=== PATIENT | female | born 1955 | race Caucasian/White ===

== ENCOUNTER → 2016-12-25 | Outpatient (CLI) | payer MEDICARE ==
[~2016-12-25] MED LIST: AC500T; AC500T PO; AMT10T; ASCO500C14; ASP81TEC PO; ASPI-84 PO; ATEN25TA PO; BUTA-234 PO; CA C1TAB26 PO; CLCX200C; CLD600T; CLON1TAB3 PO; CLON1TAB36; CLON2TAB3 PO; CYCL10TA9 PO; DIAZ2TAB2 PO; DOCU-161 PO; FLX20C; HCT25T; HYDR-229 PO; HYDR1TAB66 PO; JANUVIA; LEVO125T PO; LEVO137T24 PO; LEVO500T69 PO; LVT.112T; LVT.112T PO; LVT.1T; METH4TAB PO; MGX400T; MTF500TCR PO; MTH750T; MULT-608; MULT-608 PO; NF-ESOM40C PO; NITR100C3 PO; OMEP20CA6; PROP1TAB77; PRX20T PO; SERT100T; SITA1TAB6; SITA1TAB6 PO; SITA50TA PO; SRTR100T; SRTR100T PO; TIZA2CAP; TOPI100T; TPR100T PO; TRAMADOL HCL; TRIA16.5 NS; TRIA1TAB2 PO; TRM50T PO; klonopin
[2016-12-25 13:36] LABS: BASOPHILS % (AUTO) 1 % (0-10); EOSINOPHILS % (AUTO) 0 % (0-10); LYMPHOCYTES # (AUTO) 1.2 X 10^3 (1.0-4.0); LYMPHOCYTES % (AUTO) 16 % (12-44); MEAN CORPUSCULAR HEMOGLOBIN 32 PG (25-34); MEAN CORPUSCULAR HGB CONC 35 G/DL (32-36); MEAN CORPUSCULAR VOLUME 93 FL (80-99); MEAN PLATELET VOLUME 9.6 FL (7.4-10.4); MONOCYTES # (AUTO) 0.2 X 10^3 (0.0-1.0); MONOCYTES % (AUTO) 2 % (0-12); NEUTROPHILS # (AUTO) 6.2 X 10^3 (1.8-7.8); NEUTROPHILS % (AUTO) 81 % (42-75); PLATELET COUNT 287 10^3/uL (130-400); RED BLOOD COUNT 4.82 10^6/uL (4.35-5.85); RED CELL DISTRIBUTION WIDTH 12.5 % (10.0-14.5); WHITE BLOOD COUNT 7.7 10^3/uL (4.3-11.0)
== END ==
LOC: CARD 13:04
PROVIDERS: ATTEND Family Medicine
DX: Z01.818 Encounter for other preprocedural examination (principal); Z01.812 Encounter for preprocedural laboratory examination; M20.40 Other hammer toe(s) (acquired), unspecified foot; E03.9 Hypothyroidism, unspecified; F41.9 Anxiety disorder, unspecified
CPT/HCPCS: 36415; 85025; 93005

== ENCOUNTER 2016-12-28 05:20 | Emergency (ER) | payer MEDICARE ==
[~2016-12-28] VITALS: Ht 162.6 cm; Wt 79.5 kg
--- NOTE | 2016-12-28 06:00 | ED Fall/Injury ---
General Chief Complaint: Lower Extremity Stated Complaint: LEFT KNEE INJURY Nursing Triage Note: PT REPORTS TRIPPING OVER BABY GATE THIS AM INJURING HER L KNEE. MODERATE SWELLING NOTED TO AFFECTED KNEE. PT DENIES ANY OTHER INJURY. Source: patient Exam Limitations: no limitations History of Present Illness Time seen by provider: 05:27 Initial Comments This pleasant 61-year-old woman presents to the emergency room with a left knee injury after tripping over a baby gait in the home. She landed on the baby gate injuring her left lateral knee to which there is now a large apparent hematoma. She denies any other injuries. She is ambulatory with a limp. The incident happened somewhere around 04:00. She denies any blood thinner use other than baby aspirin which she just started taking a couple of days ago. Allergies and Home Medications Allergies Coded Allergies: gabapentin (Verified Allergy, Intermediate, 04/01/12) PYSCOTIC Sulfa (Sulfonamide Antibiotics) (Unverified Allergy, Mild, 09/02/07) hydrocodone (Unverified Allergy, Mild, 02/23/09) oxycodone (Unverified Allergy, Mild, 02/23/09) prednisone (Unverified Allergy, Mild, 02/23/09) trazodone (Unverified Allergy, Mild, 02/23/09) nefazodone (Verified Allergy, Unknown, 02/24/09) Home Medications Acetaminophen 500 Mg Tablet, 500-1,000 MG PO Q4H PRN, (Reported) as needed for mild pain Levofloxacin 500 Mg Tab, 1 EACH PO DAILY, #15 FOR INFECTION Prescribed by: OLEG RESENDEZ on 11/08/12 1428 Levothyroxine Sodium 112 Mcg Tablet, 50 MCG PO DAILY, (Reported) Methylprednisolone 4 Mg/Dose-Pack Tab.ds.pk, 0 PO UD, #1 Prescribed by: OLEG RESENDEZ on 11/08/12 1428 Sertraline Hcl 100 Mg Tab, 100 MG PO DAILY, (Reported) Triamcinolone Acetonide 16.5 Gm [place], 16.5 GM NS BID, #1 FOR SINUSES Prescribed by: OLEG RESENDEZ on 11/08/12 1428 Constitutional: no symptoms reported Respiratory: no symptoms reported Cardiovascular: no symptoms reported : No Musculoskeletal: see HPI Skin: no symptoms reported Psychiatric/Neurological: No Symptoms Reported Past Lvvgqvl-Auejav-Yquqrp Hx Patient Social History Alcohol Use: Denies Use Recreational Drug Use: No Smoking Status: Never a Smoker 2nd Hand Smoke Exposure: No Recent Foreign Travel: No Contact w/Someone Who Travel: No Recent Infectious Disease Expo: No Recent Hopitalizations: No Immunizations Up To Date Date of Influenza Vaccine: Jul 18, 2011 Surgeries HX Surgeries: Yes (Rt and Lt Foot, Bilat Carple Dejon, Bilat breast augment, scar tissue breasts) Respiratory Hx Respiratory Disorders: No Cardiovascular Hx Cardiac Disorders: No Neurological Hx Neurological Disorders: No Reproductive System Hx Reproductive Disorders: No Sexually 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 Genitourinary Hx Genitourinary Disorders: No Gastrointestinal Hx Gastrointestinal Disorders: No Musculoskeletal Hx Musculoskeletal Disorders: Yes (fibromyalgia) Musculoskeletal Disorders: Fibromyalgia, Fractures (patella fracture) Endocrine Hx Endocrine Disorders: Yes Endocrine Disorders: Hypothyroidsim HEENT HX ENT Disorders: No Cancer Hx Cancer: No Psychosocial Hx Psychiatric Problems: Yes Behavioral Health Disorders: Anxiety, Depression Blood Transfusions Hx Blood Disorders: No Physical Exam Vital Signs Vital Sign - Last 12Hours 12/28/16 05:36 Temp 97.2 Pulse 82 Resp 16 B/P (MAP) 130/89 Pulse Ox 98 O2 Delivery Room Air Capillary Refill : Less Than 3 Seconds General Appearance: WD/WN, mild distress HEENT: PERRL/EOMI, normal ENT inspection Cardiovascular: regular rate, rhythm, no edema, no murmur Respiratory: lungs clear, normal breath sounds, no respiratory distress, no accessory muscle use Gastrointestinal: non tender, soft Extremities: other (large hematoma on the left lateral knee. Joint appears unaffected. No anterior bony tenderness. 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 Patient was instructed to follow up on the official x- ray reading. Ridge wrap was applied. Patient declined pain medication. Diagnostic Imaging Diagonstic Imaging: Xray Plain Films/CT/US/NM/MRI: knee Comments 3 views of the left knee viewed by me. Report not yet available. There are old calcified fragments in the anterior lower leg separate from that hematoma. Hematoma is well appreciated on the x-ray. No accompanying acute bony abnormalities were detected. Departure Impression Impression: Primary Impression: Traumatic hematoma of left lower leg Qualified Codes: S80.12XA - Contusion of left lower leg, initial encounter Additional Impression: Fall on same level from tripping as cause of accidental injury Disposition: HOME, SELF-CARE Condition: Improved Departure-Patient Inst. Decision time for Depature: 05:55 Referrals: ZELALEM ROSE MD (PCP/Family) Primary Care Physician Patient Instructions: HEMATOMA Add. Discharge Instructions: Elevation, compressive wrapping, and icing in 20 minute intervals may reduce pain and further expansion of the hematoma. Avoid NSAID medications and aspirin for the next couple of days. Use Tylenol for pain. Return to care if symptoms worsen or you develop new symptoms. Follow-up on the official radiologist's interpretation of your x-rays. All discharge instructions reviewed with patient and/or family. Voiced understanding. ERIKA DORANTES MD Dec 28, 2016 06:00
[2016-12-28 06:03] VITALS: BP 130/89
--- NOTE | 2016-12-28 06:24 | Diagnostic Imaging Report ---
INDICATION: Status post fall over a baby gate, pain. TECHNIQUE: 3 views of the left knee. CORRELATION STUDY: None FINDINGS: Mild joint space narrowing both medially and laterally. No evidence for acute bony abnormality. There is rather large area of asymmetric soft tissue edema about the lateral aspect of the knee, likely reflective of a hematoma. No definitive evidence of lipohemarthrosis. Multiple small calcific densities noted in the soft tissues predominantly anterior to the tibial tuberosity region. IMPRESSION: 1. Negative for acute bony abnormality of the left knee. 2. Rather large amount of soft tissue swelling lateral aspect of the knee, likely reflective of hematoma. If intrinsic abnormality is of concern, MRI would be recommended. Dictated by: Dictated on workstation # [id number]
--- OUTSIDE RECORDS SUMMARY | 2017-01-20 07:27 | XMS REPORT | Continuity of Care Document ---
Author Author [facility] Organization [facility] Address Unknown Phone Unavailable Care Team Providers Care Director [employer] And [employer] Name Role Phone PCP Unavailable Source Comments Some departments are not documenting in the electronic medical record. If you do not see the information that you expected, contact Release of Information in the Health Information Management department at [phone] for further assistance in locating additional records.[facility] Active Allergies and Adverse Reactions Allergen Noted Date Severity Reactions Comments Methylprednisolone 04/25/2015 Low SEE COMMENTS psychosis Neurontin 09/26/2012 UNKNOWN Sulfa (Sulfonamide 09/26/2012 ANAPHYLAXIS Antibiotics) Trazodone 04/25/2015 Low SEE COMMENTS paroadoxical Current Medications Prescription Sig. Disp. Refills Start End Date Status Date levothyroxine (SYNTHROID) Take 100 mcg by mouth Active 100 mcg tablet daily. FLAXSEED PO Take 2 Tabs by mouth at Active bedtime daily. NIACIN (INOSITOL Take 1 Tab by mouth Active NIACINATE) (NO FLUSH daily. NIACIN PO) CALCIUM CITRATE PO Take 1 Tab by mouth twice Active daily. ASCORBATE CALCIUM Take by mouth daily. Active (VITAMIN C PO) MULTIVITAMIN PO Take 1 Tab by mouth Active daily. Vegan estradiol (ESTRACE) 1 mg Take 1 mg by mouth daily. Active tablet medroxyPROGESTERone Take 2.5 mg by mouth Active (PROVERA) 2.5 mg tablet daily. Evening Mcguffey Oil 500 Take by mouth daily. Active mg cap doxycycline (VIBRAMYCIN) Take 100 mg by mouth 01/13/20 Active 100 mg tablet daily. Indications: SKIN 16 AND SKIN STRUCTURE INFECTION mupirocin (BACTROBAN) 2 % Apply to affected area 01/30/20 Active topical ointment three times daily. 16 Indications: METHICILLIN-RESISTANT S. AUREUS NASAL COLONIZATION, topically to face & nares where irritated Active Problems Problem Noted Date Nasal obstruction 07/05/2015 Facial aging 04/25/2015 Depression 09/26/2012 Anxiety 09/26/2012 Social History Tobacco Use Types Packs/Day Years Used Date Never Smoker Smokeless Tobacco: Never Used Tobacco Cessation: Counseling Given: No Comments: Alcohol Use Drinks/Week oz/Week Comments Yes 1 Standard 0.6 drinks or equivalent Last Filed Vital Signs Vital Sign Reading Time Taken Blood Pressure 120/84 08/13/2016 1:45 PM [employer] Pulse 66 08/13/2016 1:45 PM [employer] SU[employer] Temperature 36.5 C (97.7 F) 08/08/2015 11:07 AM [employer] SU[employer] Respiratory Rate - - Height 1.651 m (5' 5") 08/13/2016 1:45 PM [employer] SU[employer] Weight 85.004 kg (187 lb 6.4 oz) 08/13/2016 1:45 PM [employer] Body Mass Index 31.18 08/13/2016 1:45 PM [employer] Oxygen Saturation - - Plan of Care Health Maintenance Due Date Last Done Comments Hepatitis C Screening 1957 Physical (Comprehensive) 1964 Exam Pertussis Vaccine 1968 Tetanus Vaccine 1974 Cervical Cancer Screening 1978 Breast Cancer Screening 1997 Colorectal Cancer 2007 Screening Influenza Vaccine 05/31/2017 Results from Last 3 Months Not on file
--- OUTSIDE RECORDS SUMMARY | 2017-01-20 07:28 | XMS REPORT | Continuity of Care Document ---
Author Author [facility] Address Unknown Phone Unavailable Allergies Active Description Code Type Severity Reaction Onset Reported/Identified Relationship to Patient Clinical Status Yes Sulfa (Sulfonamide Antibiotics) [id number] Drug Allergy Mild N/A 09/02/2007 Yes hydrocodone [id number] Drug Allergy Mild N/A 02/23/2009 Yes oxycodone [id number] Drug Allergy Mild N/A 02/23/2009 Yes prednisone [id number] Drug Allergy Mild N/A 02/23/2009 Yes trazodone [id number] Drug Allergy Mild N/A 02/23/2009 Yes nefazodone [id number] Drug Allergy Unknown N/A 02/24/2009 Yes predniSONE Drug Allergy 03/09/2011 Yes sulfa drug Drug Allergy 03/09/2011 Yes gabapentin [id number] Drug Allergy Moderate N/A 04/01/2012 Yes morphine Drug Allergy N/A N/A 07/08/2012 Yes Neurontin Drug Allergy N/A N/A 07/08/2012 Yes trazodone Drug Allergy N/A N/A 07/08/2012 Yes morphine Drug Allergy 07/08/2012 Yes Neurontin Drug Allergy 07/08/2012 Yes trazodone Drug Allergy 07/08/2012 Medications Problems Date Dx Coded Attending Type Code Diagnosis Diagnosed By 04/22/2009 RACHEL PEREZ MD 296.30 MAJOR DEPRESSION, RECURRENT 04/22/2009 RACHEL PEREZ MD 300.01 PANIC DISORDER WITHOUT AGORAPHOBIA 04/22/2009 RACHEL PEREZ MD 300.4 DYSTHYMIC DISORDER (DEPRESSIVE NEUROSIS) 04/22/2009 RACHEL PEREZ MD 296.30 MAJOR DEPRESSION, RECURRENT 04/22/2009 RACHEL PEREZ MD 300.01 PANIC DISORDER WITHOUT AGORAPHOBIA 04/22/2009 RACHEL PEREZ MD 300.4 DYSTHYMIC DISORDER (DEPRESSIVE NEUROSIS) 04/22/2009 NANCY DUGAN MD 296.30 MAJOR DEPRESSION, RECURRENT 04/22/2009 NANCY DUGAN MD 300.01 PANIC DISORDER WITHOUT AGORAPHOBIA 04/22/2009 NANCY DUGAN MD 300.4 DYSTHYMIC DISORDER (DEPRESSIVE NEUROSIS ) 04/22/2009 NANCY DUGAN MD 296.30 MAJOR DEPRESSION, RECURRENT 04/22/2009 NANCY DUGAN MD 300.01 PANIC DISORDER WITHOUT AGORAPHOBIA 04/22/2009 NANCY DUGAN MD 300.4 DYSTHYMIC DISORDER (DEPRESSIVE NEUROSIS ) 04/22/2009 296.30 MAJOR DEPRESSION, RECURRENT 04/22/2009 300.01 PANIC DISORDER WITHOUT AGORAPHOBIA 04/22/2009 300.4 DYSTHYMIC DISORDER (DEPRESSIVE NEUROSIS) 04/22/2009 296.30 MAJOR DEPRESSION, RECURRENT 04/22/2009 300.01 PANIC DISORDER WITHOUT AGORAPHOBIA 04/22/2009 300.4 DYSTHYMIC DISORDER (DEPRESSIVE NEUROSIS) 04/22/2009 296.30 MAJOR DEPRESSION, RECURRENT 04/22/2009 300.01 PANIC DISORDER WITHOUT AGORAPHOBIA 04/22/2009 300.4 DYSTHYMIC DISORDER (DEPRESSIVE NEUROSIS) 04/22/2009 NANCY DUGAN MD 296.30 MAJOR DEPRESSION, RECURRENT 04/22/2009 NANCY DUGAN MD 300.01 PANIC DISORDER WITHOUT AGORAPHOBIA 04/22/2009 NANCY DUGAN MD 300.4 DYSTHYMIC DISORDER (DEPRESSIVE NEUROSIS ) 04/22/2009 RACHEL PEREZ MD 296.30 MAJOR DEPRESSION, RECURRENT 04/22/2009 RACHEL PEREZ MD 300.01 PANIC DISORDER WITHOUT AGORAPHOBIA 04/22/2009 RACHEL PEREZ MD 300.4 DYSTHYMIC DISORDER (DEPRESSIVE NEUROSIS) 04/22/2009 RACHEL PEREZ MD 296.30 MAJOR DEPRESSION, RECURRENT 04/22/2009 RACHEL PEREZ MD 300.01 PANIC DISORDER WITHOUT AGORAPHOBIA 04/22/2009 RACHEL PEREZ MD 300.4 DYSTHYMIC DISORDER (DEPRESSIVE NEUROSIS) 04/22/2009 RACHEL PEREZ MD 296.30 MAJOR DEPRESSION, RECURRENT 04/22/2009 RACHEL PEREZ MD 300.01 PANIC DISORDER WITHOUT AGORAPHOBIA 04/22/2009 RACHEL PEREZ MD 300.4 DYSTHYMIC DISORDER (DEPRESSIVE NEUROSIS) 04/22/2009 BORA HYLTON APRN 296.30 MAJOR DEPRESSION, RECURRENT 04/22/2009 BORA HYLTON APRN 300.01 PANIC DISORDER WITHOUT AGORAPHOBIA 04/22/2009 BORA HYLTON APRN 300.4 DYSTHYMIC DISORDER (DEPRESSIVE NEUROSIS) 05/19/2009 RACHEL PEREZ MD 807.00 RIB FRACTURE 05/19/2009 RACHEL PEREZ MD 807.00 RIB FRACTURE 05/19/2009 KAILEE HUDSON, NANCY Callaway [phone] RIB FRACTURE 05/19/2009 KAILEE HUDSON, NANCY Callaway [phone] RIB FRACTURE 05/19/2009 807.00 RIB FRACTURE 05/19/2009 807.00 RIB FRACTURE 05/19/2009 807.00 RIB FRACTURE 05/19/2009 KAILEE HUDSON, NANCY Callaway [phone] RIB FRACTURE 05/19/2009 CHRIS HUDSON, RACHEL 807.00 RIB FRACTURE 05/19/2009 CHRIS HUDSON, RACHEL 807.00 RIB FRACTURE 05/19/2009 CHRIS HUDSON, RACHEL 807.00 RIB FRACTURE 05/19/2009 BORA HYLTON APRN 807.00 RIB FRACTURE 03/09/2011 RACHEL PEREZ MD 719.47 PAIN IN JOINT INVOLVING ANKLE AND FOOT 03/09/2011 RACHEL PEREZ MD 729.5 PAIN IN LIMB 03/09/2011 RACHEL PEREZ MD E885.9 ACCIDENTAL FALL FROM OTHER SLIPPING TRIPPING OR STUMBLING 03/09/2011 RACHEL PEREZ MD 719.47 PAIN IN JOINT INVOLVING ANKLE AND FOOT 03/09/2011 RACHEL PEREZ MD 729.5 PAIN IN LIMB 03/09/2011 RACHEL PEREZ MD E885.9 ACCIDENTAL FALL FROM OTHER SLIPPING TRIPPING OR STUMBLING 03/09/2011 NANCY DUGAN MD 719.47 PAIN IN JOINT INVOLVING ANKLE AND FOOT 03/09/2011 NANCY DUGAN MD 729.5 PAIN IN LIMB 03/09/2011 NANCY DUGAN MD E885.9 ACCIDENTAL FALL FROM OTHER SLIPPING TRIPPING OR STUMBLING 03/09/2011 NANCY DUGAN MD 719.47 PAIN IN JOINT INVOLVING ANKLE AND FOOT 03/09/2011 NANCY DUGAN MD9.5 PAIN IN LIMB 03/09/2011 NANCY DUGAN MD E885.9 ACCIDENTAL FALL FROM OTHER SLIPPING TRIPPING OR STUMBLING 03/09/2011 719.47 PAIN IN JOINT INVOLVING ANKLE AND FOOT 03/09/2011 729.5 PAIN IN LIMB 03/09/2011 E885.9 ACCIDENTAL FALL FROM OTHER SLIPPING TRIPPING OR STUMBLING 03/09/2011 719.47 PAIN IN JOINT INVOLVING ANKLE AND FOOT 03/09/2011 729.5 PAIN IN LIMB 03/09/2011 E885.9 ACCIDENTAL FALL FROM OTHER SLIPPING TRIPPING OR STUMBLING 03/09/2011 719.47 PAIN IN JOINT INVOLVING ANKLE AND FOOT 03/09/2011 729.5 PAIN IN LIMB 03/09/2011 E885.9 ACCIDENTAL FALL FROM OTHER SLIPPING TRIPPING OR STUMBLING 03/09/2011 NANCY DUGAN MD 719.47 PAIN IN JOINT INVOLVING ANKLE AND FOOT 03/09/2011 NANCY DUGAN MD 729.5 PAIN IN LIMB 03/09/2011 NANCY DUGAN MD E885.9 ACCIDENTAL FALL FROM OTHER SLIPPING TRIPPING OR STUMBLING 03/09/2011 RACHEL PEREZ MD 719.47 PAIN IN JOINT INVOLVING ANKLE AND FOOT 03/09/2011 RACHEL PEREZ MD 729.5 PAIN IN LIMB 03/09/2011 RACHEL PEREZ MD E885.9 ACCIDENTAL FALL FROM OTHER SLIPPING TRIPPING OR STUMBLING 03/09/2011 RACHEL PEREZ MD 719.47 PAIN IN JOINT INVOLVING ANKLE AND FOOT 03/09/2011 RACHEL PEREZ MD 729.5 PAIN IN LIMB 03/09/2011 RACHEL PEREZ MD E885.9 ACCIDENTAL FALL FROM OTHER SLIPPING TRIPPING OR STUMBLING 03/09/2011 RACHEL PEREZ MD.47 PAIN IN JOINT INVOLVING ANKLE AND FOOT 03/09/2011 RACHEL PEREZ MD 729.5 PAIN IN LIMB 03/09/2011 RACHEL PEREZ MD E885.9 ACCIDENTAL FALL FROM OTHER SLIPPING TRIPPING OR STUMBLING 03/09/2011 BORA HYLTON APRN 719.47 PAIN IN JOINT INVOLVING ANKLE AND FOOT 03/09/2011 BORA HYLTON APRN 729.5 PAIN IN LIMB 03/09/2011 WARNER LINDSAYNBORA E885.9 ACCIDENTAL FALL FROM OTHER SLIPPING TRIPPING OR STUMBLING 09/05/2011 Ot 244.9 HYPOTHYROIDISM NOS 09/05/2011 Ot 278.00 OBESITY, NOS 09/05/2011 Ot 296.23 DEPRESS DISORDER-SEVERE 09/05/2011 Ot 309.81 POSTTRAUMATIC STRESS DISORDER 09/05/2011 Ot 729.1 MYALGIA AND MYOSITIS NOS 09/05/2011 Ot 969.4 POIS-BENZODIAZEPINE MONIQUE 09/05/2011 Ot 969.8 POISON-PSYCHOTROPIC NEC 09/05/2011 Ot E849.0 ACCIDENT IN HOME 09/05/2011 Ot E950.3 SUICIDE-PSYCHOTROPIC AGT 09/05/2011 Ot V85.30 BODY MASS INDEX 30.0-30.9, ADULT 12/21/2011 Ot 244.9 HYPOTHYROIDISM NOS 12/21/2011 Ot 277.7 DYSMETABOLIC SYNDROME X 12/21/2011 Ot 296.30 RECURR DEPR DISORD-UNSP 12/21/2011 Ot 309.81 POSTTRAUMATIC STRESS DISORDER 12/21/2011 Ot 458.9 HYPOTENSION NOS 12/21/2011 Ot 729.1 MYALGIA AND MYOSITIS NOS 12/21/2011 Ot 780.09 OTHER ALTERATION OF CONSCIOUSNESS 12/21/2011 Ot 780.79 OTH MALAISE FATIGUE 12/21/2011 Ot 784.59 OTHER SPEECH DISTURBANCE 12/21/2011 Ot 962.7 POISONING-THYROID/DERIV 12/21/2011 Ot 966.3 POIS-ANTICONVUL NEC/NOS 12/21/2011 Ot 968.0 POIS-PROJECT ENGINEER CHEMICALS MUSCLE DEPRESS 12/21/2011 Ot 969.00 POISONING BY ANTIDEPRESSANT, UNSPECIFIED 12/21/2011 Ot 969.4 POIS-BENZODIAZEPINE MONIQUE 12/21/2011 Ot 972.9 POIS-CARDIOVASC AGT NEC 12/21/2011 Ot E950.3 SUICIDE-PSYCHOTROPIC AGT 12/21/2011 Ot E950.4 SUICIDE-DRUG/MEDICIN NEC 12/26/2011 CHRIS HUDSON, RACHEL 381.81 EUSTACHIAN TUBE DYSFUNCTION 12/26/2011 CHRIS HUDSON, RACHEL 461.9 SINUSITIS ACUTE 12/26/2011 RACHEL PEREZ MD 780.4 DIZZINESS AND VERTIGO 12/26/2011 RACHEL PEREZ MD 381.81 EUSTACHIAN TUBE DYSFUNCTION 12/26/2011 RACHEL PEREZ MD 461.9 SINUSITIS ACUTE 12/26/2011 RACHEL PEREZ MD 780.4 DIZZINESS AND VERTIGO 12/26/2011 NANCY DUGAN MD 381.81 EUSTACHIAN TUBE DYSFUNCTION 12/26/2011 NANCY DUGAN MD 461.9 SINUSITIS ACUTE 12/26/2011 NANCY DUGAN MD 780.4 DIZZINESS AND VERTIGO 12/26/2011 NANCY DUGAN MD 381.81 EUSTACHIAN TUBE DYSFUNCTION 12/26/2011 NANCY DUGAN MD 461.9 SINUSITIS ACUTE 12/26/2011 NANCY DUGAN MD 780.4 DIZZINESS AND VERTIGO 12/26/2011 381.81 EUSTACHIAN TUBE DYSFUNCTION 12/26/2011 461.9 SINUSITIS ACUTE 12/26/2011 780.4 DIZZINESS AND VERTIGO 12/26/2011 381.81 EUSTACHIAN TUBE DYSFUNCTION 12/26/2011 461.9 SINUSITIS ACUTE 12/26/2011 780.4 DIZZINESS AND VERTIGO 12/26/2011 381.81 EUSTACHIAN TUBE DYSFUNCTION 12/26/2011 461.9 SINUSITIS ACUTE 12/26/2011 780.4 DIZZINESS AND VERTIGO 12/26/2011 NANCY DUGAN MD 381.81 EUSTACHIAN TUBE DYSFUNCTION 12/26/2011 NANCY DUGAN MD 461.9 SINUSITIS ACUTE 12/26/2011 NANCY DUGAN MD 780.4 DIZZINESS AND VERTIGO 12/26/2011 RACHEL PEREZ MD 381.81 EUSTACHIAN TUBE DYSFUNCTION 12/26/2011 RACHEL PEREZ MD 461.9 SINUSITIS ACUTE 12/26/2011 RACHEL PEREZ MD 780.4 DIZZINESS AND VERTIGO 12/26/2011 RACHEL PEREZ MD 381.81 EUSTACHIAN TUBE DYSFUNCTION 12/26/2011 RACHEL PEREZ MD1.9 SINUSITIS ACUTE 12/26/2011 RACHEL PEREZ MD 780.4 DIZZINESS AND VERTIGO 12/26/2011 RACHEL PEREZ MD 381.81 EUSTACHIAN TUBE DYSFUNCTION 12/26/2011 RACHEL PEREZ MD 461.9 SINUSITIS ACUTE 12/26/2011 RACHEL PEREZ MD 780.4 DIZZINESS AND VERTIGO 12/26/2011 BORA HYLTON APRN T 381.81 EUSTACHIAN TUBE DYSFUNCTION 12/26/2011 BORA HYLTON APRN T 461.9 SINUSITIS ACUTE 12/26/2011 BORA HYLTON APRN 780.4 DIZZINESS AND VERTIGO 01/01/2012 RACHEL PEREZ MD 719.46 KNEE PAIN 01/01/2012 RACHEL PEREZ MD 782.3 soft tissue swelling (non-joint) [Sx] 01/01/2012 RACHEL PEREZ MD.46 KNEE PAIN 01/01/2012 RACHEL PEREZ MD 782.3 soft tissue swelling (non-joint) [Sx] 01/01/2012 NANCY DUGAN MD 719.46 KNEE PAIN 01/01/2012 NANCY DUGAN MD 782.3 soft tissue swelling (non-joint) [Sx] 01/01/2012 NANCY DUGAN MD 719.46 KNEE PAIN 01/01/2012 NANCY DUGAN MD 782.3 soft tissue swelling (non-joint) [Sx] 01/01/2012 719.46 KNEE PAIN 01/01/2012 782.3 soft tissue swelling (non-joint) [Sx] 01/01/2012 719.46 KNEE PAIN 01/01/2012 782.3 soft tissue swelling (non-joint) [Sx] 01/01/2012 719.46 KNEE PAIN 01/01/2012 782.3 soft tissue swelling (non-joint) [Sx] 01/01/2012 NANCY DUGAN MD 719.46 KNEE PAIN 01/01/2012 NANCY DUGAN MD 782.3 soft tissue swelling (non-joint) [Sx] 01/01/2012 RACHEL PEREZ MD 71Abigail.46 KNEE PAIN 01/01/2012 RACHEL PEREZ MD 782.3 soft tissue swelling (non-joint) [Sx] 01/01/2012 RACHEL PEREZ MD 719.46 KNEE PAIN 01/01/2012 RACHEL PEREZ MD 782.3 soft tissue swelling (non-joint) [Sx] 01/01/2012 RACHEL PEREZ MD.46 KNEE PAIN 01/01/2012 RACHEL PEREZ MD 782.3 soft tissue swelling (non-joint) [Sx] 01/01/2012 BORA HYLTON APRN T 719.46 KNEE PAIN 01/01/2012 BORA HYLTON APRN 782.3 SOFT TISSUE SWELLING (NON-JOINT) [SX ] 01/01/2012 Ot 729.81 SWELLING OF LIMB 01/19/2012 RACHEL PEREZ MD 786.52 CHEST WALL PAIN 01/19/2012 RACHEL PEREZ MD 786.52 CHEST WALL PAIN 01/19/2012 NANCY DUGAN MD 786.52 CHEST WALL PAIN 01/19/2012 NANCY DUGAN MD 786.52 CHEST WALL PAIN 01/19/2012 786.52 CHEST WALL PAIN 01/19/2012 786.52 CHEST WALL PAIN 01/19/2012 786.52 CHEST WALL PAIN 01/19/2012 NANCY DUGAN MD 786.52 CHEST WALL PAIN 01/19/2012 RACHEL PEREZ MD 786.52 CHEST WALL PAIN 01/19/2012 RACHEL PEREZ MD 786.52 CHEST WALL PAIN 01/19/2012 RACHEL PEREZ MD 786.52 CHEST WALL PAIN 01/19/2012 BORA HYLTON APRN 786.52 CHEST WALL PAIN 04/01/2012 Ot 300.00 ANXIETY STATE NOS 04/01/2012 Ot 780.52 INSOMNIA, UNSPECIFIED 04/09/2012 RACHEL PEREZ MD 780.79 MALAISE AND FATIGUE 04/09/2012 RACHEL PEREZ MD 786.05 SHORTNESS OF BREATH 04/09/2012 RACHEL PEREZ MD V17.49 FAM HX CAD (DISEASE) 04/09/2012 RACHEL PEREZ MD 780.79 FATIGUE 04/09/2012 RACHEL PEREZ MD 786.05 SHORTNESS OF BREATH 04/09/2012 RACHEL PEREZ MD V17.49 FAM HX CAD (DISEASE) 04/09/2012 NANCY DUGAN MD 780.79 FATIGUE 04/09/2012 NANCY DUGAN MD 786.05 SHORTNESS OF BREATH 04/09/2012 NANCY DUGAN MD V17.49 FAM HX CAD (DISEASE) 04/09/2012 NANCY DUGAN MD 780.79 FATIGUE 04/09/2012 NANCY DUGAN MD 786.05 SHORTNESS OF BREATH 04/09/2012 NANCY DUGAN MD V17.49 FAM HX CAD (DISEASE) 04/09/2012 780.79 MALAISE AND FATIGUE 04/09/2012 786.05 SHORTNESS OF BREATH 04/09/2012 V17.49 FAM HX CAD (DISEASE) 04/09/2012 780.79 FATIGUE 04/09/2012 786.05 SHORTNESS OF BREATH 04/09/2012 V17.49 FAM HX CAD (DISEASE) 04/09/2012 780.79 FATIGUE 04/09/2012 786.05 SHORTNESS OF BREATH 04/09/2012 V17.49 FAM HX CAD (DISEASE) 04/09/2012 NANCY DUGAN MD 780.79 FATIGUE 04/09/2012 NANCY DUGAN MD 786.05 SHORTNESS OF BREATH 04/09/2012 NANCY DUGAN MD V17.49 FAM HX CAD (DISEASE) 04/09/2012 RACHEL PEREZ MD 780.79 FATIGUE 04/09/2012 RACHEL PEREZ MD 786.05 SHORTNESS OF BREATH 04/09/2012 RACHEL PEREZ MD V17.49 FAM HX CAD (DISEASE) 04/09/2012 RACHEL PEREZ MD 780.79 FATIGUE 04/09/2012 RACHEL PEREZ MD 786.05 SHORTNESS OF BREATH 04/09/2012 RACHEL PEREZ MD V17.49 FAM HX CAD (DISEASE) 04/09/2012 RACHEL PEREZ MD 780.79 FATIGUE 04/09/2012 RACHEL PEREZ MD 786.05 SHORTNESS OF BREATH 04/09/2012 RACHEL PEREZ MD V17.49 FAM HX CAD (DISEASE) 04/09/2012 BORA HYLTON APRN 780.79 FATIGUE 04/09/2012 BORA HYLTON APRN 786.05 SHORTNESS OF BREATH 04/09/2012 BORA HYLTON APRN V17.49 FAM HX CAD (DISEASE) 04/24/2012 Ot 244.9 HYPOTHYROIDISM NOS 04/24/2012 Ot 276.8 HYPOPOTASSEMIA 04/24/2012 Ot 300.00 ANXIETY STATE NOS 04/24/2012 Ot 599.0 URIN TRACT INFECTION NOS 04/24/2012 Ot 785.1 PALPITATIONS 04/24/2012 Ot 786.50 CHEST PAIN NOS 05/22/2012 Ot 998.32 DISRUPTION OF EXTERNAL OPERATION (SURGIC 05/22/2012 Ot 998.59 OTH POSTOPER INFECTION 07/08/2012 RACHEL PEREZ MD 244.9 HYPOTHYROIDISM 07/08/2012 RACHEL PEREZ MD 271.3 GLUCOSE INTOLERANCE 07/08/2012 RACHEL PEREZ MD 782.1 skin: a rash [as Sx] 07/08/2012 RACHEL PEREZ MD V76.12 Mammogram Screening 07/08/2012 RACHEL PEREZ MD 244.9 HYPOTHYROIDISM 07/08/2012 RACHEL PEREZ MD 271.3 GLUCOSE INTOLERANCE 07/08/2012 RACHEL PEREZ MD 782.1 skin: a rash [as Sx] 07/08/2012 RACHEL PEREZ MD V76.12 Mammogram Screening 07/08/2012 NANCY DUGAN MD 244.9 HYPOTHYROIDISM 07/08/2012 NANCY DUGAN MD 271.3 GLUCOSE INTOLERANCE 07/08/2012 NANCY DUGAN MD 782.1 skin: a rash [as Sx] 07/08/2012 NANCY DUGAN MD V76.12 Mammogram Screening 07/08/2012 NANCY DUGAN MD 244.9 HYPOTHYROIDISM 07/08/2012 NANCY DUGAN MD 271.3 GLUCOSE INTOLERANCE 07/08/2012 NANCY DUGAN MD 782.1 skin: a rash [as Sx] 07/08/2012 NANCY DUGAN MD V76.12 Mammogram Screening 07/08/2012 244.9 HYPOTHYROIDISM 07/08/2012 271.3 GLUCOSE INTOLERANCE 07/08/2012 782.1 skin: a rash [as Sx] 07/08/2012 V76.12 Mammogram Screening 07/08/2012 244.9 HYPOTHYROIDISM 07/08/2012 271.3 GLUCOSE INTOLERANCE 07/08/2012 782.1 skin: a rash [as Sx] 07/08/2012 V76.12 Mammogram Screening 07/08/2012 244.9 HYPOTHYROIDISM 07/08/2012 271.3 GLUCOSE INTOLERANCE 07/08/2012 782.1 skin: a rash [as Sx] 07/08/2012 V76.12 Mammogram Screening 07/08/2012 NANCY DUGAN MD 244.9 HYPOTHYROIDISM 07/08/2012 NANCY DUGAN MD 271.3 GLUCOSE INTOLERANCE 07/08/2012 NANCY DUGAN MD 782.1 skin: a rash [as Sx] 07/08/2012 NANCY DUGAN MD V76.12 Mammogram Screening 07/08/2012 RACHEL PEREZ MD 244.9 HYPOTHYROIDISM 07/08/2012 RACHEL PEREZ MD 271.3 GLUCOSE INTOLERANCE 07/08/2012 RACHEL PEREZ MD 782.1 skin: a rash [as Sx] 07/08/2012 RACHEL PEREZ MD V76.12 Mammogram Screening 07/08/2012 RACHEL PEREZ MD 244.9 HYPOTHYROIDISM 07/08/2012 RACHEL PEREZ MD 271.3 GLUCOSE INTOLERANCE 07/08/2012 RACHEL PEREZ MD 782.1 skin: a rash [as Sx] 07/08/2012 RACHEL PEREZ MD V76.12 Mammogram Screening 07/08/2012 RACHEL PEREZ MD 244.9 HYPOTHYROIDISM 07/08/2012 RACHEL PEREZ MD 271.3 GLUCOSE INTOLERANCE 07/08/2012 RACHEL PEREZ MD 782.1 skin: a rash [as Sx] 07/08/2012 RACHEL PEREZ MD V76.12 Mammogram Screening 07/08/2012 BORA HYLTON APRN 244.9 HYPOTHYROIDISM 07/08/2012 BORA HYLTON APRN 271.3 GLUCOSE INTOLERANCE 07/08/2012 BORA HYLTON APRN 782.1 SKIN: A RASH [ SX ] 07/08/2012 BORA HYLTON APRN V76.12 Mammogram Screening 08/03/2012 Ot 244.9 HYPOTHYROIDISM NOS 08/03/2012 Ot 285.9 ANEMIA NOS 08/03/2012 Ot 296.30 RECURR DEPR DISORD-UNSP 08/03/2012 Ot 300.00 ANXIETY STATE NOS 08/03/2012 Ot 785.1 PALPITATIONS 08/03/2012 Ot 965.09 POISONING-OPIATES NEC 08/03/2012 Ot 968.0 POIS-PROJECT ENGINEER CHEMICALS MUSCLE DEPRESS 08/03/2012 Ot 980.0 TOXIC EFF ETHYL ALCOHOL 08/03/2012 Ot E950.0 SUICIDE-ANALGESICS 08/03/2012 Ot E950.4 SUICIDE-DRUG/MEDICIN NEC 08/03/2012 Ot E950.9 SUICIDE-SOLID/LIQUID NEC 11/08/2012 Ot 461.9 ACUTE SINUSITIS NOS 11/08/2012 Ot 786.2 COUGH 11/11/2012 RACHEL PEREZ MD 783.1 recent weight gain (___ lbs) [reported] 11/11/2012 RACHEL PEREZ MD 783.1 recent weight gain (___ lbs) [reported] 11/11/2012 NANCY DUGAN MD 783.1 recent weight gain (___ lbs) [ reported] 11/11/2012 NANCY DUGAN MD 783.1 recent weight gain (___ lbs) [ reported] 11/11/2012 783.1 recent weight gain (___ lbs) [reported] 11/11/2012 783.1 recent weight gain (___ lbs) [reported] 11/11/2012 NANCY DUGAN MD 783.1 recent weight gain (___ lbs) [ reported] 11/11/2012 RACHEL PEREZ MD 783.1 recent weight gain (___ lbs) [reported] 11/11/2012 RACHEL PEREZ MD 783.1 recent weight gain (___ lbs) [reported] 11/11/2012 RACHEL PEREZ MD 783.1 recent weight gain (___ lbs) [reported] 11/11/2012 BORA HYLTON APRN 783.1 recent weight gain (___ lbs) [reported] 11/18/2012 RACHEL PEREZ MD 599.0 URINARY TRACT INFECTION 11/18/2012 NANCY DUGAN MD 599.0 URINARY TRACT INFECTION 11/18/2012 NANCY DUGAN MD 599.0 URINARY TRACT INFECTION 11/18/2012 599.0 URINARY TRACT INFECTION 11/18/2012 599.0 URINARY TRACT INFECTION 11/18/2012 NANCY DUGAN MD 599.0 URINARY TRACT INFECTION 11/18/2012 RACHEL PEREZ MD 599.0 URINARY TRACT INFECTION 11/18/2012 RACHEL PEREZ MD 599.0 URINARY TRACT INFECTION 11/18/2012 RACHEL PEREZ MD 599.0 URINARY TRACT INFECTION 11/18/2012 BORA HYLTON APRN 599.0 URINARY TRACT INFECTION 03/19/2013 300.00 anxiety 03/19/2013 300.00 anxiety 03/19/2013 NANCY DUGAN MD 300.00 anxiety 03/19/2013 RACHEL PEREZ MD 300.00 anxiety 03/19/2013 RACHEL PEREZ MD 300.00 anxiety 03/19/2013 RACHEL PEREZ MD 300.00 anxiety 03/19/2013 BORA HYLTON APRN 300.00 anxiety 05/19/2013 401.9 UNSPECIFIED ESSENTIAL HYPERTENSION 05/19/2013 NANCY DUGAN MD 401.9 UNSPECIFIED ESSENTIAL HYPERTENSION 05/19/2013 RACHEL PEREZ MD 401.9 UNSPECIFIED ESSENTIAL HYPERTENSION 05/19/2013 RACHEL PEREZ MD 401.9 UNSPECIFIED ESSENTIAL HYPERTENSION 05/19/2013 RACHEL PEREZ MD 401.9 UNSPECIFIED ESSENTIAL HYPERTENSION 05/19/2013 BORA HYLTON APRN 401.9 UNSPECIFIED ESSENTIAL HYPERTENSION 05/21/2013 272.4 OTHER AND UNSPECIFIED HYPERLIPIDEMIA 05/21/2013 NANCY DUGAN MD 272.4 OTHER AND UNSPECIFIED HYPERLIPIDEMIA 05/21/2013 RACHEL PEREZ MD 272.4 OTHER AND UNSPECIFIED HYPERLIPIDEMIA 05/21/2013 RACHEL PEREZ MD 272.4 OTHER AND UNSPECIFIED HYPERLIPIDEMIA 05/21/2013 RACHEL PEREZ MD 272.4 OTHER AND UNSPECIFIED HYPERLIPIDEMIA 05/21/2013 BORA HYLTON APRN 272.4 OTHER AND UNSPECIFIED HYPERLIPIDEMIA 10/26/2013 RACHEL PEREZ MD 729.1 MYALGIA AND MYOSITIS UNSPECIFIED 10/26/2013 RACHEL PEREZ MD 729.1 MYALGIA AND MYOSITIS UNSPECIFIED 10/26/2013 RACHEL PEREZ MD 729.1 MYALGIA AND MYOSITIS UNSPECIFIED 10/26/2013 BORA HYLTON APRN 729.1 MYALGIA AND MYOSITIS UNSPECIFIED 03/23/2014 RACHEL PEREZ MD 726.5 ENTHESOPATHY OF HIP REGION 03/23/2014 OBRA HYLTON APRN 726.5 ENTHESOPATHY OF HIP REGION 04/14/2014 JESSE INFANTE DO Ot 719.46 JOINT PAIN-L/LEG 04/14/2014 JESSE INFANTE DO Ot V57.1 PHYSICAL THERAPY NEC 09/13/2014 Ot 996.78 09/13/2014 Ot V72.83 09/13/2014 Ot 735.4 09/13/2014 Ot V72.63 09/13/2014 Ot V74.8 01/28/2015 Ot 735.4 01/28/2015 Ot V72.63 01/28/2015 Ot V74.8 01/28/2015 Ot 735.4 01/28/2015 Ot V72.63 01/28/2015 Ot V74.8 01/10/2016 Ot 715.35 01/10/2016 Ot 959.6 01/10/2016 Ot E000.8 01/10/2016 Ot E849.0 01/10/2016 Ot E888.9 01/10/2016 Ot 722.52 01/10/2016 Ot 959.7 01/10/2016 Ot E000.8 01/10/2016 Ot E849.0 01/10/2016 Ot E888.9 01/10/2016 Ot 959.19 01/10/2016 Ot E000.8 01/10/2016 Ot E888.9 01/10/2016 Ot 781.2 01/10/2016 Ot V15.88 01/10/2016 Ot 719.46 01/10/2016 Ot 729.5 01/10/2016 Ot 959.7 01/10/2016 Ot E000.8 01/10/2016 Ot E849.0 01/10/2016 Ot E888.9 01/10/2016 Ot 729.5 01/10/2016 Ot 822.0 01/10/2016 Ot E000.8 01/10/2016 Ot E849.0 01/10/2016 Ot E888.9 01/10/2016 Ot 782.3 01/10/2016 Ot 785.1 01/10/2016 Ot 786.09 01/10/2016 Ot V17.3 01/10/2016 KAILEE HUDSON, NANCY Callaway Ot 780.1 01/10/2016 KAILEE HUDSON, NANCY Callaway Ot 780.97 01/10/2016 JESSE INFANTE DO Ot 719.06 01/10/2016 JESSE INFANTE DO Ot 719.46 01/10/2016 JESSE INFANTE DO Ot 793.7 01/11/2016 ROSE HUDSON, ZELALEM Bowman Ot R41.0 01/11/2016 ROSE HUDSON, ZELALEM Bowman Ot R41.3 01/11/2016 ROSE HUDSON, ZELALEM Bowman Ot R41.0 01/11/2016 ROSE HUDSON, ZELALEM Bowman Ot R41.3 01/13/2016 ROSE HUDSON, ZELALEM Bowman Ot R41.0 DISORIENTATION, UNSPECIFIED 01/13/2016 ROSE HUDSON, ZELALEM Bowman Ot R41.3 OTHER AMNESIA 02/01/2016 ROSE HUDSON, ZELALEM Bowman Ot R41.0 DISORIENTATION, UNSPECIFIED 02/01/2016 ROSE HUDSON, ZELALEM Bowman Ot R41.3 OTHER AMNESIA 02/01/2016 ROSE HUDSON, ZELALEM Bowman Ot R41.0 DISORIENTATION, UNSPECIFIED 02/01/2016 ROSE HUDSON, ZELALEM Bowman Ot R41.3 OTHER AMNESIA 02/08/2016 ROSE HUDSON, ZELALEM Bowman Ot R41.0 DISORIENTATION, UNSPECIFIED 02/08/2016 ROSE HUDSON, ZELALEM Bowman Ot R41.3 OTHER AMNESIA 12/25/2016 Ot 959.19 OTH INJURY OF OTHER SITES OF TRUNK 12/25/2016 Ot E000.8 OTHER EXTERNAL CAUSE STATUS 12/25/2016 Ot E888.9 FALL NOS 12/25/2016 Ot 781.2 ABNORMALITY OF GAIT 12/25/2016 Ot V15.88 HISTORY OF FALL 12/25/2016 Ot 719.46 JOINT PAIN-L/LEG 12/25/2016 Ot 729.5 PAIN IN LIMB 12/25/2016 Ot 959.7 LOWER LEG INJURY NOS 12/25/2016 Ot E000.8 OTHER EXTERNAL CAUSE STATUS 12/25/2016 Ot E849.0 ACCIDENT IN HOME 12/25/2016 Ot E888.9 FALL NOS 12/25/2016 Ot 729.5 PAIN IN LIMB 12/25/2016 Ot 822.0 FRACTURE PATELLA-CLOSED 12/25/2016 Ot E000.8 OTHER EXTERNAL CAUSE STATUS 12/25/2016 Ot E849.0 ACCIDENT IN HOME 12/25/2016 Ot E888.9 FALL NOS 12/25/2016 Ot 782.3 EDEMA 12/25/2016 Ot 785.1 PALPITATIONS 12/25/2016 Ot 786.09 RESPIRATORY ABNORM NEC 12/25/2016 Ot V17.3 FAM HX-ISCHEM HEART DIS 12/25/2016 NANCY DUGAN MD Ot 780.1 HALLUCINATIONS 12/25/2016 KAILEE HUDSON, NANCY Callaway Ot 780.97 ALTERED MENTAL STATUS 12/25/2016 NARESH DO, JESSE F Ot 719.06 JOINT EFFUSION-L/LEG 12/25/2016 NARESH DO, JESSE F Ot 719.46 JOINT PAIN-L/LEG 12/25/2016 NARESH DO, JESSE F Ot 793.7 NOSP (ABN) FINDINGS ON RADIOLOGICAL OT 12/25/2016 ZELALEM ROSE MD Ot R41.0 DISORIENTATION, UNSPECIFIED 12/25/2016 ZELALEM ROSE MD Ot R41.3 OTHER AMNESIA 12/25/2016 ZELALEM ROSE MD Ot R41.0 DISORIENTATION, UNSPECIFIED 12/25/2016 ZELALEM ROSE MD Ot R41.3 OTHER AMNESIA 12/26/2016 ZELALEM ROSE MD Ot E03.9 HYPOTHYROIDISM, UNSPECIFIED 12/26/2016 ZELALEM ROSE MD Ot F41.9 ANXIETY DISORDER, UNSPECIFIED 12/26/2016 ZELALEM ROSE MD Ot M20.40 OTHER HAMMER TOE(S) (ACQUIRED), UNSPECIF 12/26/2016 ZELALEM ROSE MD Ot Z01.812 ENCOUNTER FOR PREPROCEDURAL LABORATORY E 12/26/2016 ZELALEM ROSE MD Ot Z01.818 ENCOUNTER FOR OTHER PREPROCEDURAL EXAMIN 12/26/2016 ZELALEM ROSE MD Ot E03.9 HYPOTHYROIDISM, UNSPECIFIED 12/26/2016 ZELALEM ROSE MD Ot F41.9 ANXIETY DISORDER, UNSPECIFIED 12/26/2016 ZELALEM ROSE MD Ot M20.40 OTHER HAMMER TOE(S) (ACQUIRED), UNSPECIF 12/26/2016 ZELALEM ROSE MD Ot Z01.812 ENCOUNTER FOR PREPROCEDURAL LABORATORY E 12/26/2016 ZELALEM ROSE MD Ot Z01.818 ENCOUNTER FOR OTHER PREPROCEDURAL EXAMIN 12/31/2016 ERIKA DORANTES MD Ot S80.02XA CONTUSION OF LEFT KNEE, INITIAL ENCOUNTE 12/31/2016 ERIKA DORANTES MD Ot W01.198A FALL SAME LEV FROM SLIP/TRIP W STRIKE AG 12/31/2016 ERIKA DORANTES MD, Ot Y92.[address] IN [facility] NON-INSTITUT ( PRIVATE 12/31/2016 ERIKA DORANTES MD, Ot Y99.8 OTHER EXTERNAL CAUSE STATUS 12/31/2016 ERIKA DORANTES MD, Ot Z79.899 OTHER SNF (CURRENT) DRUG THERAPY 01/03/2017 ERIKA DORANTES MD, Ot S80.02XA CONTUSION OF LEFT KNEE, INITIAL ENCOUNTE 01/03/2017 ERIKA DORANTES MD, Ot W01.198A FALL SAME LEV FROM SLIP/TRIP W STRIKE AG 01/03/2017 ERIKA DORANTES MD, Ot Y92.[address] IN [facility] NON-INSTITUT ( PRIVATE 01/03/2017 ERIKA DORANTES MD, Ot Y99.8 OTHER EXTERNAL CAUSE STATUS 01/03/2017 ERIKA DORANTES MD, Ot Z79.899 OTHER SNF (CURRENT) DRUG THERAPY Procedures Code Description Performed By Performed On Susan [place]orman 07/22/2012 [id number] ROUTINE VENIPUNCTURE 11/12/2012 00326 UA LONG DIP 11/12 65515 BMP 11/12/2012 [id number] GFR CALC (RESULT ONLY) 11/12/2012 01402 TSH 11/12/2012 37413 CORTISOL 2012 50597 T4 FREE 2012 81438 CULTURE URINE 93693 ROUTINE VENIPUNCTURE 11/18/2012 62011 THERAPUTIC INJ SQ/IM 11/18/2012 J0696 ROCEPHIN INJ 99166 MONO TEST (IN-HOUSE) 11/18/2012 45114 FSH 11/18/2012 28937 LH 11/18/2012 34066 VIT B 12 2012 84246 ESTROGEN 2012 51664 CBC W/MANUAL DIF (order) 11/19/2012 58549 ROUTINE VENIPUNCTURE 11/26/2012 61509 UA W/ CULTURE IF INDICATED 11/26/2012 85643 LIVER PANEL (LFT) 11/26/2012 [id number] COMPLETE BLOOD COUNT NO DIFF (CBC Result) 11/26/2012 77846 DIFFERENTIAL WBC COUNT (CBC DIFF RESULT) 11/26/2012 81239 CBC W/MANUAL DIF (order) 11/27/2012 31017 UA W/ CULTURE IF INDICATED 12/17/2012 95437 CMP 02/18/2013 14880 T4 FREE 2012 77810 TSH 02/18/[address] HEAD/BRAIN W/O & W/DYE 03/20/2013 PHYSICAL Lowell Steinberg 03/20/[address] HEAD/BRAIN W/O & W/DYE 03/25/2013 67731 ROUTINE VENIPUNCTURE 05/19/2013 31486 BMP 05/19/2013 63494 LIPID PANEL 05/19 [id number] GFR CALC (RESULT ONLY) 05/19/2013 23685 TSH 05/19/2013 22136 T4 FREE 2012 96096 BMP 05/21/2013 95015 T4 FREE 2012 44369 TSH 05/21/2013 32800 ROUTINE VENIPUNCTURE 10/26/2013 59233 LIPID PANEL 10/26 42033 VITAMIN D 25-HYDROXY (D2,D3, TOTAL) 10/26/2013 28258 CALCIUM IONIZED 10/26/2013 66132 PTH (intact) (ORDER ONLY) 10/26/2013 61242 CBC 10/26/2013 7501803 GFR CALC (RESULT ONLY) 10/26/2013 87829 CMP 10/26/2013 80210 CRP 10/26/2013 55305 TSH 11/09/2013 40401 CMP 03/23/2014 29004 LIPID PANEL 03/23 49724 CBC 03/23/2014 Results Test Result Range Complete blood count (CBC) with automated white blood cell (WBC) differential - 12/25/16 13:30 Blood leukocytes automated count (number/volume) 7.7 10*3/ uL 4.3-11.0 Blood erythrocytes automated count (number/volume) 4.82 10*6 /uL 4.35-5.85 Venous blood hemoglobin measurement (mass/volume) 15.5 g/dL 11.5-16.0 Blood hematocrit (volume fraction) 45 % 35-52 Automated erythrocyte mean corpuscular volume 93 [foz_us] 80-99 Automated erythrocyte mean corpuscular hemoglobin (mass per erythrocyte) 32 pg 25-34 Automated erythrocyte mean corpuscular hemoglobin concentration measurement ( mass/volume) 35 g/dL 32-36 Automated erythrocyte distribution width ratio 12.5 % 10.0-14.5 Automated blood platelet count (count/volume) 287 10*3/uL 130-400 Automated blood platelet mean volume measurement 9.6 [foz_us ] 7.4-10.4 Automated blood neutrophils/100 leukocytes 81 % 42-75 Automated blood lymphocytes/100 leukocytes 16 % 12-44 Blood monocytes/100 leukocytes 2 % 0-12 Automated blood eosinophils/100 leukocytes 0 % 0-10 Automated blood basophils/100 leukocytes 1 % 0-10 Blood neutrophils automated count (number/volume) 6.2 10*3 1.8-7.8 Blood lymphocytes automated count (number/volume) 1.2 10*3 1.0-4.0 Blood monocytes automated count (number/volume) 0.2 10*3 0.0-1.0 Automated eosinophil count 0.0 10*3/uL 0.0-0.3 Automated blood basophil count (count/volume) 0.0 10*3/uL 0.0-0.1 Encounters ACCT No. Visit Date/Time Discharge Status Pt. Type Provider Facility Loc./Unit Complaint [id number] 04/21/2014 11:51:00 04/21/2014 23: 59:59 CLS Outpatient [facility] [id number] 03/23/2014 13:17:00 03/23/2014 23: 59:59 CLS Outpatient RACHEL PEREZ MD [id number] 10/26/2013 15:15:00 10/26/2013 23: 59:59 CLS Outpatient RACHEL PEREZ MD [id number] 10/26/2013 15:15:00 10/26/2013 23: 59:59 CLS Outpatient RACHEL PEREZ MD [id number] 05/19/2013 11:20:00 05/19/2013 23: 59:59 CLS Outpatient NANCY DUGAN MD [id number] 12/17/2012 09:39:00 12/17/2012 23: 59:59 CLS Outpatient NANCY DUGAN MD [id number] 11/26/2012 14:54:00 11/26/2012 23: 59:59 CLS Outpatient NANCY DUGAN MD [id number] 11/18/2012 11:47:00 11/18/2012 23: 59:59 CLS Outpatient RACHEL PEREZ MD [id number] 11/12/2012 08:59:00 11/12/2012 23: 59:59 CLS Outpatient CHRIS HUDSON, RACHEL [id number] 07/21/2012 10:45:00 07/21/2012 23: 59:59 CLS Outpatient [id number] 05/21/2013 10:37:00 Document Registration [id number] 03/19/2013 15:47:00 Document Registration
== END 2016-12-28 06:03 | disposition home or self-care (01) ==
LOC: EDUNIT# 05:20 → ER 05:22
DX: S80.02XA Contusion of left knee, initial encounter (principal); Z79.899 Other long term (current) drug therapy; W01.198A Fall on same level from slipping, tripping and stumbling with subsequent striking against other object, initial encounter; Y92.009 Unspecified place in unspecified non-institutional (private) residence as the place of occurrence of the external cause; Y99.8 Other external cause status
CPT/HCPCS: 73562; 99283

== ENCOUNTER → 2017-01-07 | Outpatient (CLI) | payer MEDICARE ==
--- NOTE | 2017-01-07 14:44 | Diagnostic Imaging Report ---
EXAMINATION: Three views of the left ankle. INDICATION: Fall. FINDINGS: No fracture, dislocation or radiopaque foreign body is seen. The ankle mortise is normal in configuration. Mild soft tissue swelling around the ankle is seen. IMPRESSION: No fracture seen. Dictated by: Dictated on workstation # [id number]
== END ==
LOC: RAD 14:12
PROVIDERS: ATTEND Family Medicine
DX: M25.572 Pain in left ankle and joints of left foot (principal)
CPT/HCPCS: 73610

== ENCOUNTER → 2017-01-08 | Outpatient (CLI) | payer MEDICARE ==
--- NOTE | 2017-01-08 19:05 | Diagnostic Imaging Report ---
INDICATION: Pituitary adenoma. TECHNIQUE: MRI brain obtained without IV contrast due to history of allergy. COMPARISON: MRI of the brain is compared with 01/11/2016. FINDINGS: Diffusion-weighted images demonstrate no areas of diffusion signal abnormality to suggest ischemic change. There were no extra-axial fluid collections. No intracranial hemorrhage. No intracranial mass or mass effect. No midline shift. The ventricles are normal in size and position. There was no significant white matter disease. There were no focal parenchymal abnormalities in the brain. There is mild opacification of the left mastoid air cells inferiorly. The small left pituitary lesion seen on the previous study of 01/11/2016 cannot be seen on this study, probably due to the lack of contrast. There is no change in the caliber of the gland or contour of the gland compared to the prior study. IMPRESSION: Previous left-sided pituitary microadenoma described on 01/11/2016 is not seen on this study due to the lack of contrast. There is no significant change however in the contour or thickness of the gland compared to the prior study. Remainder of the study is unremarkable. Dictated by: Dictated on workstation # [id number]
== END ==
LOC: RAD 17:39
PROVIDERS: ATTEND Family Medicine
DX: D35.2 Benign neoplasm of pituitary gland (principal)
CPT/HCPCS: 70551

== ENCOUNTER 2017-06-11 09:45 | Outpatient (RCR) | payer MEDICARE | END 2017-06-28 16:53 | disposition home or self-care (01) | PROVIDERS: ATTEND Nurse Practitioner Family | DX: R29.898 Other symptoms and signs involving the musculoskeletal system (principal) ==

== ENCOUNTER → 2018-07-25 | Outpatient (CLI) | payer MEDICARE ==
--- NOTE | 2018-07-25 11:09 | Diagnostic Imaging Report ---
INDICATION: Fall. Rib pain. COMPARISON: None. FINDINGS: Three radiographic views of the left ribs were obtained. There are subtle lucent irregularities involving the anterior margins of the left fifth and sixth ribs consistent with acute nondisplaced fractures. This is only well visualized on the oblique view. Included portions of the left hemithorax are clear. Degenerative changes of the lumbar spine are noted. IMPRESSION: Acute appearing nondisplaced fractures of the left fifth and sixth ribs. Dictated by: Dictated on workstation # [id number]
== END ==
LOC: RAD 10:20
PROVIDERS: ATTEND Nurse Practitioner Family
DX: S22.42XA Multiple fractures of ribs, left side, initial encounter for closed fracture (principal); W19.XXXA Unspecified fall, initial encounter
CPT/HCPCS: 71100

== ENCOUNTER 2018-11-09 13:54 | Emergency (ER) | payer MEDICARE ==
[~2018-11-09] VITALS: Ht 165.1 cm; Wt 79.4 kg
--- NOTE | 2018-11-09 14:25 | ED Fall/Injury ---
General Chief Complaint: Trauma-Non Activation Stated Complaint: FALL,BACK PAIN Nursing Triage Note: PT CO OF FALL, SLIPPED ON ICE ON SATURDAY FELL ON BUTTOCKS CO OF LOW BACK PAIN AND COCCYX PAIN 04/08 DENIES LOC Source: patient, family Exam Limitations: no limitations History of Present Illness Date Seen by Provider: Nov 09, 2018 Time Seen by Provider: 14:21 Initial Comments 63-year-old female presents after she fell on the ice several days ago landing on her coccyx and thoracic area. The patient is complaining of increasing pain in the right thoracic area and the coccyx. The patient denies paresthesias or weakness in the extremities. She denies associated head injury or neck pain. Patient denies shortness of breath, nausea vomiting, dysuria, frequency, or extremity injury. Patient's pain is moderate in severity and sharp in nature. The patient's pain is made worse with movement. Location Injury Occurred: HOME Allergies and Home Medications Allergies Coded Allergies: gabapentin (Verified Allergy, Intermediate, 04/01/12) PYSCOTIC Sulfa (Sulfonamide Antibiotics) (Unverified Allergy, Mild, 09/02/07) hydrocodone (Unverified Allergy, Mild, 02/23/09) oxycodone (Unverified Allergy, Mild, 02/23/09) prednisone (Unverified Allergy, Mild, 02/23/09) trazodone (Unverified Allergy, Mild, 02/23/09) nefazodone (Verified Allergy, Unknown, 02/24/09) Home Medications Acetaminophen 500 Mg Tablet, 500-1,000 MG PO Q4H PRN, (Reported) as needed for mild pain Levofloxacin 500 Mg Tab, 1 EACH PO DAILY FOR INFECTION Prescribed by: OLEG RESENDEZ on 11/08/121427 Levothyroxine Sodium 112 Mcg Tablet, 50 MCG PO DAILY, (Reported) Methylprednisolone 4 Mg/Dose-Pack Tab.ds.pk, 0 PO UD Prescribed by: OLEG RESENDEZ on 11/08/121427 Sertraline Hcl 100 Mg Tab, 100 MG PO DAILY, (Reported) Triamcinolone Acetonide 16.5 Gm [place], 16.5 GM NS BID FOR SINUSES Prescribed by: OLEG RESENDEZ on 11/08/121427 Patient Home Medication List Home Medication List Reviewed: Yes Review of Systems Review of Systems Constitutional: No chills, No fever Eyes: No Symptoms Reported Ears, Nose, Mouth, Throat: no symptoms reported Respiratory: No cough, No short of breath Cardiovascular: No chest pain Gastrointestinal: No abdominal pain, No nausea, No vomiting Genitourinary: no symptoms reported : No Musculoskeletal: see HPI, back pain, other (coccygeal pain) Skin: no symptoms reported Psychiatric/Neurological: No Symptoms Reported Past Aodkcol-Hslnbh-Ssmsnb Hx Past Med/Social Hx: Reviewed Nursing Past Med/Soc Hx Patient Social History Alcohol Use: Denies Use Recreational Drug Use: No Smoking Status: Never a Smoker 2nd Hand Smoke Exposure: No Recent Foreign Travel: No Contact w/Someone Who Travel: No Recent Infectious Disease Expo: No Recent Hopitalizations: No Immunizations Up To Date Date of Influenza Vaccine: Jul 18, 2011 Past Medical History Surgeries: Yes (Rt and Lt Foot, Bilat Carple Dejon, Bilat breast augment, scar tissue breasts) Respiratory: No Cardiac: No Neurological: No 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 4.8oz. 79.455103vt; 32.61 BMI Method:Stated General Appearance: WD/WN, mild distress HEENT: normal ENT inspection Neck: non-tender, full range of motion Cardiovascular: normal peripheral pulses Respiratory: chest non-tender, lungs clear Gastrointestinal: non tender, soft Back: vertebral tenderness (in the lower thoracic region and in the coccygeal area of the pelvis) Extremities: normal range of motion, non-tender Neurologic/Psychiatric: no motor/sensory deficits, alert, normal mood/affect Skin: normal color, warm/dry [place] Coma Score Best Eye Response: (4) Open Spontaneously Best Verbal Response: (5) Oriented Best Motor Response: (6) Obeys Commands [place] Total: 15 Progress/Results/Core Measures Results/Orders My Orders Orders - NATE CUNNINGHAM MD Ct Pelvis Wo (11/09/18 14:00) Ct Thoracic Spine Wo (11/09/18 14:00) Ribs, Right 2-3 Views (11/09/18 14:00) Vital Signs/I&O 11/09/18 14:00 Temp 97.1 Pulse 74 Resp 18 B/P (MAP) 149/90 (109) Pulse Ox 100 Blood Pressure Mean: 109 Progress Progress Note : Time: 15:07 Progress Note The patient's CT of the pelvis and thoracic spine film demonstrated evidence of fracture. X-rays of the right ribs were similarly benign. I discussed the findings with the patient and . We elected on a course of tramadol and Norflex for pain and spasm at home. I asked the patient to follow up closely with her doctor early this week. I invited her to return to the emergency department if any further problems or questions. Departure Impression Primary Impression: Contusion Qualified Codes: S30.0XXA - Contusion of lower back and pelvis, initial encounter Disposition: 01 HOME, SELF-CARE Condition: Unchanged Departure-Patient Inst. Decision time for Depature: 15:09 Referrals: ZELALEM IRENE MD (PCP/Family) Primary Care Physician Patient Instructions: CHEST CONTUSION Add. Discharge Instructions: Tramadol and Norflex as prescribed. Close follow-up with Dr. Irene. Return of any problems or questions All discharge instructions reviewed with patient and/or family. Voiced understanding. NATE CUNNINGHAM MD Nov 09, 2018 14:25
--- NOTE | 2018-11-09 14:45 | Diagnostic Imaging Report ---
PROCEDURE: CT thoracic spine without contrast. TECHNIQUE: Multiple axial computerized tomography images were obtained from the base of the thoracic spine to the vertex without intravenous contrast. INDICATION: Fall with back pain. FINDINGS: There is normal kyphotic curvature. The vertebral body heights are maintained. There is multilevel degenerative disc disease with variable disc space narrowing and marginal spurring. The paraspinous tissues are unremarkable. IMPRESSION: Thoracic spondylosis. No acute compression fracture is detected. Dictated by: Dictated on workstation # [id number]
--- NOTE | 2018-11-09 14:47 | Diagnostic Imaging Report ---
INDICATION: Fall with right-sided rib pain. TIME OF EXAM: 2:13 PM Three views right ribs were obtained. FINDINGS: No displaced rib fracture is seen. No parenchymal contusion, effusion or pneumothorax is seen. IMPRESSION: No acute bony abnormality is detected. Dictated by: Dictated on workstation # [id number]
--- NOTE | 2018-11-09 14:53 | Diagnostic Imaging Report ---
PROCEDURE: CT pelvis without contrast. TECHNIQUE: Multiple contiguous axial images were obtained through the pelvis without the use of intravenous contrast. Sagittal and coronal reformations were performed. INDICATION: Fall on ice, persistent pain to the low back and buttock region. Axial pelvic CT performed with multiplanar reconstructions. FINDINGS: No intramuscular, gluteal or subcutaneous hematoma. The innominate bones were intact. The hip joints showed mild arthritic changes but appeared nonacute. Superior and inferior pubic rami, the symphysis and SI joints showed no diastases. The sacrococcygeal segments revealed no apparent fracture deformity. No presacral edema or hematoma. No pelvic free fluid. The pelvic sidewalls were unremarkable. The pelvic bowel loops unobstructed and nonacute with chronic noninflamed diverticulosis of the sigmoid noted. The pelvic anterior abdominal wall is intact. No hernia is visualized. IMPRESSION: No fracture, hemorrhage or acute/posttraumatic sequelae identified. Dictated by: Dictated on workstation # [id number]
[2018-11-09 15:22] VITALS: BP 149/90
== END 2018-11-09 15:22 | disposition home or self-care (01) ==
LOC: EDUNIT# 13:54 → ER 13:55
DX: S30.0XXA Contusion of lower back and pelvis, initial encounter (principal); S20.229A Contusion of unspecified back wall of thorax, initial encounter; E03.9 Hypothyroidism, unspecified; F41.9 Anxiety disorder, unspecified; R40.2142 Coma scale, eyes open, spontaneous, at arrival to emergency department; R40.2252 Coma scale, best verbal response, oriented, at arrival to emergency department; R40.2362 Coma scale, best motor response, obeys commands, at arrival to emergency department; F32.9 Major depressive disorder, single episode, unspecified; Z88.2 Allergy status to sulfonamides; Z88.5 Allergy status to narcotic agent; Z88.8 Allergy status to other drugs, medicaments and biological substances; Z98.890 Other specified postprocedural states; Z90.710 Acquired absence of both cervix and uterus; Z87.448 Personal history of other diseases of urinary system; W00.9XXA Unspecified fall due to ice and snow, initial encounter
CPT/HCPCS: 71100; 72128; 72192

== ENCOUNTER 2019-07-23 09:52 | Outpatient (RCR) | payer MEDICARE | END 2019-07-23 11:01 | disposition home or self-care (01) | PROVIDERS: ATTEND Nurse Practitioner Family | DX: Z98.890 Other specified postprocedural states (principal); M19.041 Primary osteoarthritis, right hand ==

== ENCOUNTER → 2019-12-04 | Outpatient (CLI) | payer MEDICARE ==
--- NOTE | 2019-12-04 16:09 | Diagnostic Imaging Report ---
PROCEDURE: US Non-ob pelvis comp/trans. TECHNIQUE: Multiple realtime grayscale images were obtained of the pelvis in various projections endovaginally. Transabdominal imaging was also performed. INDICATION: Pelvic pain for six weeks. FINDINGS: Uterus is anteverted measuring 6.1 x 2.0 x 3.5 cm. Endometrium is 5 mm in thickness. There is some fluid in the endometrial canal and endocervical canal. Right ovary was not visualized. Left ovary was not visualized. No adnexal mass or free fluid is seen. IMPRESSION: 1. There is some fluid in the endometrial and endocervical canal. No myometrial mass or endometrial mass is identified. 2. Nonvisualized ovaries. Dictated by: Dictated on workstation # [id number]
== END ==
LOC: RAD 13:06
PROVIDERS: ATTEND Family Medicine
DX: R10.2 Pelvic and perineal pain (principal)
CPT/HCPCS: 76830; 76856

== ENCOUNTER → 2020-01-15 | Outpatient (CLI) | payer MEDICARE ==
--- NOTE | 2020-01-15 10:29 | Diagnostic Imaging Report ---
PROCEDURE: CT pelvis without contrast. TECHNIQUE: Multiple contiguous axial images were obtained through the pelvis without the use of intravenous contrast. Sagittal and coronal reformations were performed. Auto Exposure Controls were utilized during the CT exam to meet ALARA standards for radiation dose reduction. INDICATION: Pelvic pain for 2 to 3 months. FINDINGS: Bladder and uterus are unremarkable. There are diverticuli involving the sigmoid colon but no evidence of acute diverticulitis. No free fluid or pelvic fluid collection is identified. No definite inguinal or iliac lymphadenopathy is identified. Evaluation of bony structures demonstrates bilateral sacral ala to be intact. Sacral foramina are unremarkable. SI joints and symphysis are not diastased. The superior and inferior pubic rami appear to be intact. Normal femoral acetabular alignment is seen bilaterally. No hip fracture is detected. Lower lumbar spondylosis is noted. IMPRESSION: 1. Uncomplicated diverticulosis. 2. Otherwise unremarkable CT of the pelvis without contrast. No acute feature is detected. Dictated by: Dictated on workstation # [id number]
== END ==
LOC: RAD 09:50
PROVIDERS: ATTEND Nurse Practitioner Family
DX: K57.30 Diverticulosis of large intestine without perforation or abscess without bleeding (principal)
CPT/HCPCS: 72192

== ENCOUNTER 2020-03-14 06:13 | Outpatient (RCR) | payer MEDICARE ==
[~2020-03-14] VITALS: Ht 167.7 cm; Wt 79.5 kg
[2020-03-14] MEDS ORDERED: ESTR1TAB24 PO (12:14)
[2020-03-14] MEDS ORDERED: LEVO75TA6 PO (12:14)
[2020-03-14] MEDS ORDERED: PROP10TA8 PO (12:14)
[2020-03-14] MEDS ORDERED: MEDR2.5T6 PO (12:14)
== END 2020-06-12 | disposition home or self-care (01) ==
LOC: PREOP 06:13
PROVIDERS: ATTEND Obstetrics & Gynecology
DX: Z01.818 Encounter for other preprocedural examination (principal)

== ENCOUNTER → 2020-06-21 | Outpatient (CLI) | payer MEDICARE ==
[~2020-06-21] MED LIST changes: +ESTR1TAB24 PO; +LEVO75TA6 PO; +MEDR2.5T6 PO; +PROP10TA8 PO
--- NOTE | 2020-06-21 18:28 | Diagnostic Imaging Report ---
PROCEDURE: MRI right joint lower extremity without contrast. TECHNIQUE: Multiplanar, multisequence non contrast-enhanced MRI of the right lower extremity was accomplished. INDICATION: Right knee pain. COMPARISON: None. FINDINGS: No acute fracture is seen in the right knee. Alignment appears normal. There is a moderate right knee joint effusion. There is minimal fluid in Pollock's cyst. The articular cartilage in the patellofemoral compartment demonstrates mild heterogeneity with no full-thickness defects. The cartilage in the medial compartment demonstrates minimal thinning with no large full-thickness defects. The lateral compartment demonstrates full-thickness cartilage loss at the tibial plateau as well as a 1 cm full-thickness defect at the femoral condyle. The medial meniscus is intact. There is a complete radial tear of the lateral meniscus at the junction of the posterior horn and body with extrusion of the meniscal body. The anterior and posterior cruciate ligaments are intact. The medial collateral ligament is mildly thickened which may be from remote trauma, but no acute tear seen. The lateral collateral ligamentous complex is intact. The extensor mechanism is intact. The medial and lateral retinacula are intact. Soft tissues about the knee are otherwise unremarkable. IMPRESSION: 1. Complete radial tear of the lateral meniscus. 2. Severe cartilage loss in the lateral compartment. 3. Moderate right knee joint effusion. Dictated by: Dictated on workstation # [id number]
== END ==
LOC: RAD 14:45
PROVIDERS: ATTEND Orthopaedic Surgery
DX: M23.261 Derangement of other lateral meniscus due to old tear or injury, right knee (principal)
CPT/HCPCS: 73721

== ENCOUNTER 2020-06-29 05:39 | Outpatient (CLI) | payer MEDICARE ==
[~2020-06-29] VITALS: Ht 165 cm; Wt 76.8 kg
[2020-06-29] MEDS ORDERED: HYDROmorphone (DILAUDID) 4 MG TAB PO PRN (07:30)
[2020-06-29] MEDS ORDERED: LEVO50TA6 PO (11:10)
[2020-06-29] MEDS ORDERED: PROP10TA8 PO (11:10)
[2020-06-29] MEDS ORDERED: MEDR2.5T6 PO (11:10)
[2020-06-29] MEDS ORDERED: ESTR1TAB27 PO (11:10)
== END 2020-06-29 11:20 | disposition home or self-care (01) ==
LOC: PREOP 05:39
PROVIDERS: ATTEND Orthopaedic Surgery
DX: Z01.818 Encounter for other preprocedural examination (principal)

== ENCOUNTER → 2020-07-05 | Outpatient (CLI) | payer MEDICARE ==
[~2020-07-05] MED LIST changes: +ESTR1TAB27 PO; +LEVO50TA6 PO
== END ==
LOC: LABNPT 06:18
PROVIDERS: ATTEND Orthopaedic Surgery
DX: Z01.818 Encounter for other preprocedural examination (principal); Z01.812 Encounter for preprocedural laboratory examination; S83.281A Other tear of lateral meniscus, current injury, right knee, initial encounter; Z20.828 Contact with and (suspected) exposure to other viral communicable diseases; X58.XXXA Exposure to other specified factors, initial encounter
CPT/HCPCS: 87635

== ENCOUNTER 2020-07-06 08:43 | Day surgery (SDC) | payer MEDICARE ==
--- NOTE | 2020-06-28 07:54 | HISTORY AND PHYSICAL ---
DATE OF SERVICE: DATE OF SERVICE AND SURGERY: 07/06/2020. This will be for outpatient surgery on 07/06/2020 for right knee arthroscopy. HISTORY OF PRESENT ILLNESS: The patient is a 64-year-old female with progressively worsening right lateral knee pain, catching, locking and swelling. An MRI revealed a complex tear of the lateral meniscus as well as chondral changes throughout the lateral compartment. The patient understands that arthroscopy will help with her mechanical symptoms, but will not cure her arthritic symptoms that she may require total knee arthroplasty in the future. She reports progressive loss of function in the knee. REVIEW OF SYSTEMS: No chest pain, no shortness of breath, no dysuria. PAST MEDICAL HISTORY: Traumatic brain injury, anxiety disorder, depression, reflux, tension headaches, hypertension, hypothyroidism. PAST SURGICAL HISTORY: Left knee arthroscopy, brachioplasty. FAMILY HISTORY: Noncontributory. PRIMARY CARE PROVIDER: Dr. Irene. MEDICATIONS: Valium, propranolol, magnesium, progesterone, Synthroid, . ALLERGIES: IV DYE, VANCOMYCIN, GABAPENTIN. SOCIAL HISTORY: The patient denies alcohol, tobacco use. PHYSICAL EXAMINATION: GENERAL: The patient is well-developed, well-nourished, in no acute distress. HEENT: Normocephalic, atraumatic. Pupils are equal, round and reactive to light. Oropharynx is clear. NECK: Supple, no lymphadenopathy. LUNGS: Clear to auscultation bilaterally. HEART: Regular rate and rhythm. ABDOMEN: Soft, nontender, nondistended. EXTREMITIES: The right knee demonstrates a moderate effusion. There is mild valgus alignment. No varus valgus laxity. Negative anterior and posterior drawer. She is markedly tender along the lateral joint line. She has pain laterally with Oral's and tenderness along her posterior joint line with hyperflexion. 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 PLAN: Right knee arthroscopy with partial lateral meniscectomy and chondroplasty. The patient understands risks, benefits, options, ramifications and recovery and wishes to proceed. Job ID: [id number] DocumentID: [id number] Dictated Date: 06/27/2020 11:26:42 Glass Cutter Date: 06/27/2020 11:58:40 Dictated By: CANDE GARCIA MD
[2020-07-06] VITALS (10 sets, daily range): BP systolic 114–155; BP diastolic 58–99
[~2020-07-06] VITALS: Ht 165 cm; Wt 76.8 kg
[2020-07-06] MEDS ORDERED: LACTATED RINGERS 1,000 ML IV PRN (08:48)
[2020-07-06] MEDS ORDERED: CLINDAMYCIN 600 MG/50 ML IVPB 50 ML IV ONE (09:00)
--- NOTE | 2020-07-06 09:23 | Progress Note-Pre Operative ---
Pre-Operative Progress Note H&P Reviewed The H&P was reviewed, patient examined and no changes noted. Date Seen by Provider: Jul 06, 2020 Time Seen by Provider: : Date H&P Reviewed: Jul 06, 2020 Time H&P Reviewed: : Pre-Operative Diagnosis: right knee lateral meniscus tear and chondromalacia CANDE GARCIA MD Jul 06, 2020 09:23
--- NOTE | 2020-07-06 09:24 | Progress Note-Post Operative ---
Post-Operative Progess Note Surgeon (s)/Miscellaneous Machine Operator (s) Surgeon CANDE GARCIA MD Miscellaneous Machine Operator: Arnie Fournier Pre-Operative Diagnosis right knee lateral meniscus tear and chondromalacia Post-Operative Diagnosis right knee lateral meniscus tear and chondromalacia of the lateral femoral, lateral tibial plateau and patella Procedure & Operative Findings Date of Procedure 07/06/20 Procedure Performed/Findings right knee arthroscopic partial lateral meniscectomy and chondroplasty of the lateral femoral condyle, lateral tibial plateau and patella Anesthesia Type GETA Estimated Blood Loss Estimated blood loss (mL): minimal Specimens/Packing Specimens Removed none Packing: none CANDE GARCIA MD Jul 06, 2020 09:24
[2020-07-06] MEDS ORDERED: ONDANSETRON 4 MG/2 ML (SDV) Z0FRAN ONE (09:25)
[2020-07-06] MEDS ORDERED: SEVOFLURANE (ULTANE) 15 ML INHAL SOLN ONE (09:25)
[2020-07-06] MEDS ORDERED: LIDOCAINE PF 2% 5 ML (XYLOCAINE) VIAL ONE (09:25)
[2020-07-06] MEDS ORDERED: proPOfol 200 MG/20 ML (DIPRIVAN) VIAL IV ONE (09:25)
[2020-07-06] MEDS ORDERED: fentaNYL INJECTION 100 MCG/2 ML AMP ONE (09:26)
[2020-07-06] MEDS ORDERED: MIDAZOLAM 2 MG/2 ML (VERSED) VIAL ONE (09:26)
[2020-07-06] MEDS ORDERED: morphine PF (DURAMORPH) 10 MG/10 ML AMP ONE (09:33)
[2020-07-06] MEDS ORDERED: BUPIVACAINE 0.25% 30 ML (SENSORCAINE) VIAL ONE (09:33)
[2020-07-06] MEDS ORDERED: ONDANSETRON 4 MG/2 ML (SDV) Z0FRAN IVP PRN (10:45)
[2020-07-06] MEDS ORDERED: fentaNYL INJECTION 100 MCG/2 ML AMP IVP ONE (10:45)
[2020-07-06] MEDS ORDERED: HYDROmorphone 2 MG/ML VIAL (DILAUDID) IV ONE (10:45)
[2020-07-06] MEDS ORDERED: HYDROmorphone 2 MG/ML VIAL (DILAUDID) ONE (11:14)
[2020-07-06] MEDS ORDERED: TRM50T PO (11:49)
--- NOTE | 2020-07-06 14:05 | OPERATIVE REPORT ---
DATE OF SERVICE: PREOPERATIVE DIAGNOSES: 1. Right knee lateral meniscus tear. 2. Right knee chondromalacia of lateral femoral condyle. 3. Right knee chondromalacia of the lateral tibial plateau. POSTOPERATIVE DIAGNOSES: 1. Right knee lateral meniscus tear. 2. Right knee chondromalacia of lateral femoral condyle. 3. Right knee chondromalacia of the lateral tibial plateau. 4. Right knee chondromalacia of the patella. PROCEDURES: 1. Right knee arthroscopic partial lateral meniscectomy. 2. Right knee arthroscopic chondroplasty of the lateral femoral condyle. 3. Right knee arthroscopic chondroplasty of the lateral tibial plateau. 4. Right knee arthroscopic chondroplasty of the patella. SURGEON: Cande Garcia MD TRACK LAYING SUPERVISOR: NICOLE Kenney, who assisted throughout the procedure and closed the incisions. ANESTHESIA: General endotracheal by Dr. Park. TOURNIQUET TIME: Not applicable. ESTIMATED BLOOD LOSS: Minimal. DRAINS: None. COMPLICATIONS: None. POSTOPERATIVE PLAN: Routine arthroscopy protocol. The patient was transferred to the recovery room awake and in stable condition. STATEMENT OF MEDICAL NECESSITY: The patient is a 65-year-old female with a right lateral knee pain, catching, locking and swelling. An MRI revealed a complex tear of the lateral meniscus as well as significant chondral loss of the lateral compartment. The patient was counseled that an arthroscopy can help with her mechanical symptoms, but would not alleviate her arthritic symptoms and the patient may require total knee arthroplasty in the future. She understood this and elected to proceed with surgical intervention. Examination under anesthesia revealed valgus alignment. Range of motion 0/2/130 with negative Morris, negative anterior and posterior drawer. No varus valgus laxity, negative pivot shift. ARTHROSCOPIC FINDINGS: The patella demonstrated grade II chondral flaps inferiorly. Trochlea demonstrated no gross chondral abnormalities. Medial compartment demonstrated no meniscal or chondral pathology. The ACL and PCL were intact. The lateral compartment demonstrated grade IV chondral loss of the posterior aspect of the tibial plateau in a 10 x 10 area with surrounding grade III chondral flaps at the periphery. There was a complex tear of the posterior horn and body of the lateral meniscus involving approximately two-thirds of the posterior horn and body. The lateral femoral condyle demonstrated grade III chondral flaps centrally in a 20 x 20 area. PROCEDURE IN DETAIL: After risks and benefits of procedure were discussed and questions were answered, an informed consent was signed and placed on chart. The operative site was confirmed and prepped in normal initialed by the surgeon. The patient was then transferred to the operating room and after adequate levels of general endotracheal anesthetic were obtained, a timeout was called, confirming the operative site. Examination under anesthesia was performed with above findings noted. The right lower extremity was prepped and draped in the usual sterile fashion. The knee joint was injected with 60 mL of fluid and standard inferolateral portals placed with the arthroscope under direct visualization, inferior medial portal was created, the menisci and cruciates carefully probed with the above findings noted. The unstable chondral flaps on the patella were debrided with shaver back to a stable edge. Scope was redirected into the lateral compartment and unstable chondral flaps in lateral femoral condyle and lateral tibial plateau were debrided with a shaver back to a stable edge. Posterior horn and body of the lateral meniscus were debrided with shaver back to a stable edge. The knee was copiously irrigated. Port sites were closed with 4-0 nylon in septic fashion. Knee was injected with Duramorph. Portal sites were infiltrated with plain Marcaine and soft dressing was applied. The patient was transferred to the recovery room awake and in stable condition. Job ID: [id number] DocumentID: [id number] Dictated Date: 07/06/2020 10:42:50 Water Well Driller Date: 07/06/2020 14:04:34 Dictated By: CANDE GARCIA MD
--- NOTE | 2020-07-06 14:11 | Physical Therapy Ortho Eval ---
PT Orthopedic Evaluation Type of Surgery Knee Scope (right) Prior Level of Function Current Living Status: Spouse Locomotion (Upon Admit): Independent Subjective Subjective Agrees to PT. Reports she had a left knee scope recently. Entry Into Home: Stairs With Railing Steps Into Home: 1 Motor Control Motor Control: Motor Control WNL ROM ROM: WFL Strength Strength: WFL Transfer Transfers (B, C, W/C) (FIM): 5 (6 post visit) Gait Gait Assistive Device: FWW Right Lower Extremity: Right Weight Bearing Status RLE: Weight Bearing/Tolerated Left Lower Extremity: Left Weight Bearing Status LLE: Full Weight Bearing Gait (FIM): 5 (6 post visit) Distance (FIM): 3=150 ft Summary/Comments safe and steady gait. up/down curb step x 2 with FWW; supervision initially and was mod indep at end of eval. Treatment Rendered Treatment: Therapeutic Exercises, Gait Train, Step Train Exercise Instruction: Quad Sets, Straight Leg Raise, Heel Slides Assessment/Goals Goal Time Frame: 1 Visit Understands HEP: Yes Safe Ambulation: Yes Plan Treatment Plan: Discharge PT/Family Agrees to Plan: Yes Time Time In: 1144 Time Out: 1205 Total Billed Treatment Time: 21 Billed Treatment Time visit EVM 21 TOM GORDON PT Jul 06, 2020 14:11
== END 2020-07-06 12:20 | disposition home or self-care (01) ==
LOC: SDC 08:43
PROVIDERS: ATTEND Orthopaedic Surgery
DX: M23.251 Derangement of posterior horn of lateral meniscus due to old tear or injury, right knee (principal); M22.41 Chondromalacia patellae, right knee; Z11.2 Encounter for screening for other bacterial diseases; F41.9 Anxiety disorder, unspecified; F32.9 Major depressive disorder, single episode, unspecified; K21.9 Gastro-esophageal reflux disease without esophagitis; I10 Essential (primary) hypertension; E03.9 Hypothyroidism, unspecified; Z79.890 Hormone replacement therapy; Z79.899 Other long term (current) drug therapy; Z91.041 Radiographic dye allergy status; Z88.1 Allergy status to other antibiotic agents; Z88.8 Allergy status to other drugs, medicaments and biological substances; Z87.820 Personal history of traumatic brain injury
CPT/HCPCS: 87081

== ENCOUNTER 2020-11-30 19:16 | Emergency (ER) | payer MEDICARE ==
[~2020-11-30] VITALS: Ht 165.1 cm; Wt 77.3 kg
[2020-11-30 20:03] LABS: BASOPHILS # (AUTO) 0.1 10^3/uL (0.0-0.1); BASOPHILS % (AUTO) 1 % (0-10); EOSINOPHILS # (AUTO) 0.1 10^3/uL (0.0-0.3); EOSINOPHILS % (AUTO) 2 % (0-10); HEMATOCRIT 42 % (35-52); LYMPHOCYTES # (AUTO) 1.9 10^3/uL (1.0-4.0); LYMPHOCYTES % (AUTO) 34 % (12-44); MEAN CORPUSCULAR HEMOGLOBIN 32 pg (25-34); MEAN CORPUSCULAR HGB CONC 33 g/dL (32-36); MEAN CORPUSCULAR VOLUME 98 fL (80-99); MEAN PLATELET VOLUME 9.8 fL (9.0-12.2); MONOCYTES # (AUTO) 0.5 10^3/uL (0.0-1.0); MONOCYTES % (AUTO) 9 % (0-12); NEUTROPHILS % (AUTO) 54 % (42-75); PLATELET COUNT 212 10^3/uL (130-400); WHITE BLOOD COUNT 5.6 10^3/uL (4.3-11.0)
[2020-11-30] MEDS ORDERED: predniSONE 20 MG TAB PO ONE (20:30)
[2020-11-30] MEDS ORDERED: LIDOCAINE 2% VISCOUS 15 ML UDC PO ONE (20:30)
[2020-11-30] MEDS ORDERED: ANTACID SUSP 30 ML UDC (MYLANTA) PO ONE (20:30)
--- NOTE | 2020-11-30 20:35 | ED General ---
General Chief Complaint: Allergic Reaction Stated Complaint: BLISTERS IN MOUTH Nursing Triage Note: PT AMBULATES TO ROOM FT1 ACCOMPANIED BY WITH C/O ULCERS TO MOUTH ET TOUNGUE. REPORTS ULCERATIONS BEGAN ON LIP LATE THIS MORNING AND MULTIPLE HAVE APPEARED TO MOUTH ET LIPS THROUGHOUT THIS DAY. REPORTS TINGLING SENSATION TO TIP OF TONGUE ET BURNING SENSATION TO DISTAL THROAT. DENIES SOA. REPORTS SHE BEGAN BACTRIM ABX ON 11/27/20 D/T MRSA INFECTION. REPORTS SHE TOOK 25MG BENADRYL AT APPROX 2030 ON THIS DAY. Nursing Sepsis Screen: No Definite Risk Source of Information: Patient Exam Limitations: No Limitations History of Present Illness Date Seen by Provider: Nov 30, 2020 Time Seen by Provider: 20:27 Initial Comments ER with reports of ulcerations to the mucous membrane of the mouth onset this morning and progressive throughout the evening. No trouble swallowing no shortness of breath no skin rash. No abdominal cramping just left. She started Bactrim a few days ago for MRSA infection of the right side of her forehead. Timing/Duration: 1-2 Days Severity: Moderate Allergies and Home Medications Allergies Coded Allergies: levofloxacin (Verified Allergy, Severe, NEUROPATHY, 06/29/20) gabapentin (Verified Allergy, Intermediate, 04/01/12) PYSCOTIC Iodinated Contrast Media (Verified Allergy, Mild, RASH, 06/29/20) hydrocodone (Unverified Allergy, Mild, 02/23/09) oxycodone (Unverified Allergy, Mild, 02/23/09) prednisone (Unverified Allergy, Mild, 02/23/09) trazodone (Unverified Allergy, Mild, 02/23/09) vancomycin (Verified Allergy, Mild, RASH, 06/29/20) NSAIDS (Non-Steroidal Anti-Inflamma (Verified Allergy, Unknown, GI pain, 03/14/20) nefazodone (Verified Allergy, Unknown, 02/24/09) Home Medications Estradiol 1 Mg Tablet, 1 MG PO Q48H, (Reported) Levothyroxine Sodium 50 Mcg Tablet, 50 MCG PO DAILY, (Reported) Medroxyprogesterone Acetate 2.5 Mg Tablet, 2.5 MG PO Q48H, (Reported) Propranolol HCl 10 Mg Tablet, 10 MG PO DAILY PRN for ANXIETY, (Reported) Tramadol HCl 50 Mg Tablet, 50 MG PO Q4H PRN for PAIN Prescribed by: NABIL WALL on 07/06/20 1149 Patient Home Medication List Home Medication List Reviewed: Yes Review of Systems Review of Systems Constitutional: see HPI; No chills, No fever, No malaise, No weakness EENTM: see HPI, other (She does report some discomfort to the medial canthus of the left eye but there is no conjunctival injection of the palpebral or bulbar conjunctive a there is no swelling to suggest dacryocystitis or any other visible lesion) Respiratory: no symptoms reported; No cough, No dyspnea on exertion Cardiovascular: no symptoms reported Genitourinary: no symptoms reported Musculoskeletal: no symptoms reported Skin: no symptoms reported Psychiatric/Neurological: No Symptoms Reported Hematologic/Lymphatic: No Symptoms Reported Past Vzdngni-Truzbc-Xdytql Hx Patient Social History Alcohol Use: Denies Use Smoking Status: Never a Smoker 2nd Hand Smoke Exposure: No Recent Infectious Disease Expo: No Recent Hopitalizations: No Immunizations Up To Date Date of Influenza Vaccine: Jul 18, 2011 Seasonal Allergies Seasonal Allergies: Yes (mild) Past Medical History Surgeries: Yes (Rt and Lt Foot, Bilat Carple Dejon,breast augment, scar tissue breasts, NASAL) Respiratory: No Cardiac: No Neurological: Yes (hx of head trauma) Reproductive Disorders: No 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 Sexually Transmitted Disease: No Genitourinary: No Benign Prostatic Hyperpl Gastrointestinal: No Musculoskeletal: Yes Arthritis, Fibromyalgia, Fractures Endocrine: Yes Hypothyroidsim HEENT: Yes (GLASSES) Loss of Vision: Denies Hearing Impairment: Denies Cancer: No Psychosocial: Yes Anxiety, Depression Integumentary: No Blood Disorders: No Adverse Reaction/Blood Tranf: No (N/A) Physical Exam Vital Signs Vital Signs - First Documented 11/30/20 19:30 Temp 36.7 Pulse 92 Resp 18 B/P (MAP) 159/85 (109) Pulse Ox 98 O2 Delivery Room Air Capillary Refill : Less Than 3 Seconds Height, Weight, BMI Height: 5'5.00" Weight: 175lbs. 4.8oz. [id number]; 28.00 BMI Method:Stated General Appearance: No Apparent Distress, WD/WN, Anxious, Other (Alert and oriented very pleasant anxious appearing. She has a small ulcerated area to the right side of the buccal surface of the bottom lip. She has 1 single ulcerative lesion on the right side of the buccal surface of the right cheek. Similarly 1 or 2 ulcerative lesions on the buccal surface left cheek. One on the tip of the tongue that is erythematous but not ulcerated. There is no stridor or wheezing. Lungs are clear. No skin rash to suggest Hernandez-Hima's.) Eyes: Bilateral Eye Normal Inspection, Bilateral Eye PERRL, Bilateral Eye EOMI, Bilateral Eye Other (Upper and lower lids appear normal there is no conjunctival injection of the palpebral or bulbar conjunctive a) HEENT: PERRL/EOMI, TMs Normal Neck: Full Range of Motion, Normal Inspection Respiratory: No Accessory Muscle Use, No Respiratory Distress Cardiovascular: Regular Rate, Rhythm, Normal Peripheral Pulses Gastrointestinal: Normal Bowel Sounds, Non Tender, Soft Neurologic/Psychiatric: Alert, Oriented x3 Skin: Normal Color, Warm/Dry, Other (Small punctate lesion to the right side of the forehead does not warrant systemic antibiotics as there is no surrounding cellulitis.) Progress/Results/Core Measures Suspected Sepsis Recent Fever Within 48 Hours: No Infection Criteria Present: None New/Unexplained Altered Menta: No Sepsis Screen: No Definite Risk SIRS Temperature: Pulse: 92 Respiratory Rate: 18 Laboratory Tests 11/30/20 19:51: White Blood Count 5.6 Blood Pressure 159 /85 Mean: 109 Laboratory Tests 11/30/20 19:51: Platelet Count 212 Results/Orders Lab Results Laboratory Tests Test 11/30/20 19:51 Range/Units White Blood Count 5.6 4.3-11.0 10^3/uL Red Blood Count 4.32 3.80-5.11 10^6/uL Hemoglobin 14.0 11.5-16.0 g/dL Hematocrit 42 35-52 % Mean Corpuscular Volume 98 80-99 fL Mean Corpuscular Hemoglobin 32 25-34 pg Mean Corpuscular Hemoglobin Concent 33 32-36 g/dL Red Cell Distribution Width 11.9 10.0-14.5 % Platelet Count 212 130-400 10^3/uL Mean Platelet Volume 9.8 9.0-12.2 fL Immature Granulocyte % (Auto) 0 % Neutrophils (%) (Auto) 54 42-75 % Lymphocytes (%) (Auto) 34 12-44 % Monocytes (%) (Auto) 9 0-12 % Eosinophils (%) (Auto) 2 0-10 % Basophils (%) (Auto) 1 0-10 % Neutrophils # (Auto) 3.0 1.8-7.8 10^3/uL Lymphocytes # (Auto) 1.9 1.0-4.0 10^3/uL Monocytes # (Auto) 0.5 0.0-1.0 10^3/uL Eosinophils # (Auto) 0.1 0.0-0.3 10^3/uL Basophils # (Auto) 0.1 0.0-0.1 10^3/uL Immature Granulocyte # (Auto) 0.0 0.0-0.1 10^3/uL My Orders Orders - JENIFER ONTIVEROS APRN Cbc With Automated Diff (11/30/20 19:36) Prednisone Tablet (Deltasone Tablet) (11/30/20 20:30) Antacid Suspension (Mylanta Suspension (11/30/20 20:30) Lidocaine 2% Viscous 15 Ml (Xylocaine Vi (11/30/20 20:30) Vital Signs/I&O 11/30/20 19:30 Temp 36.7 Pulse 92 Resp 18 B/P (MAP) 159/85 (109) Pulse Ox 98 O2 Delivery Room Air Capillary Refill : Less Than 3 Seconds Blood Pressure Mean: 109 Departure Impression Primary Impression: Mucositis Disposition: 01 HOME, SELF-CARE Condition: Stable Departure-Patient Inst. Decision time for Depature: 20:35 Referrals: ZELALEM IRENE MD (PCP) Primary Care Physician Patient Instructions: Mouth Sores Add. Discharge Instructions: 1. Call Dr. Irene tomorrow to make an appointment to be seen for follow-up even if you are feeling better. Return to the emergency room promptly for any worsening symptoms such as worsening mouth sores, any eye sores, skin lesions. All discharge instructions reviewed with patient and/or family. Voiced understanding. Scripts Prednisone (Prednisone) 20 Mg Tab 40 MG PO DAILY, #2 TAB 0 Refills Prov: JENIFER ONTIVEROS APRN 11/30/20 JENIFER ONTIVEROS APRN Nov 30, 2020 20:35
[2020-11-30] MEDS ORDERED: PRD20T PO (20:36)
[2020-11-30 20:44] VITALS: BP 130/86
== END 2020-11-30 20:44 | disposition home or self-care (01) ==
LOC: EDUNIT# 19:16 → ER 19:17
DX: K12.30 Oral mucositis (ulcerative), unspecified (principal); E03.9 Hypothyroidism, unspecified; Z88.1 Allergy status to other antibiotic agents; Z88.5 Allergy status to narcotic agent; Z88.6 Allergy status to analgesic agent; Z91.041 Radiographic dye allergy status; Z88.8 Allergy status to other drugs, medicaments and biological substances; Z79.890 Hormone replacement therapy; Z87.820 Personal history of traumatic brain injury
CPT/HCPCS: 36415; 85025; 99283

== ENCOUNTER → 2020-12-20 | Outpatient (CLI) | payer MEDICARE ==
[~2020-12-20] MED LIST changes: +PRD20T PO
--- NOTE | 2020-12-20 12:31 | Diagnostic Imaging Report ---
PROCEDURE: Pelvic comp/transvaginal sonogram. TECHNIQUE: Complete transabdominal and transvaginal pelvic ultrasound was performed. In addition, limited pelvic Doppler was performed. INDICATION: Pelvic pain. Uterus is anteverted measuring 5.8 x 2.4 x 3.0 cm. Endometrium is 3 mm in thickness. No myometrial mass is detected. Ovaries cannot be visualized. No adnexal mass or free fluid is detected. IMPRESSION: Nonvisualized ovaries. The study is otherwise unremarkable. Dictated by: Dictated on workstation # [id number]
== END ==
LOC: RAD 10:30
PROVIDERS: ATTEND Obstetrics & Gynecology
DX: R10.2 Pelvic and perineal pain (principal)
CPT/HCPCS: 76830; 76856

== ENCOUNTER → 2021-08-09 | Outpatient (CLI) | payer MEDICARE ==
--- NOTE | 2021-08-09 14:05 | Diagnostic Imaging Report ---
INDICATION: Mid back pain, degenerative disc disease COMPARISON: 07/06/2019 CT tthoracicspine FINDINGS: There is a single stable mid thoracic compression fracture without significant height loss. No new fracture is seen. Stable vckm-fb-mfhhiueo degenerative disc disease is present. There is no osseous lesion. IMPRESSION: Stable degenerative disc disease. No new fracture identified. Dictated by: Dictated on workstation # [id number]
--- NOTE | 2021-08-09 14:45 | Diagnostic Imaging Report ---
INDICATION: Back injury. TIME OF EXAM: 11:51 AM. FINDINGS: Three views of the lumbar spine show normal lordotic curvature. There is mild left convexity scoliotic curvature. The vertebral body heights are maintained. No acute compression fracture is seen. There is generalized degenerative disc disease with variable disc space narrowing and marginal spurring. There is lower lumbar facet arthropathy. IMPRESSION: Lumbar scoliosis and spondylosis. No acute bony abnormality is detected. Dictated by: Dictated on workstation # [id number]
== END ==
LOC: RAD 11:28
PROVIDERS: ATTEND Family Medicine
DX: M47.814 Spondylosis without myelopathy or radiculopathy, thoracic region (principal); M47.816 Spondylosis without myelopathy or radiculopathy, lumbar region; M41.86 Other forms of scoliosis, lumbar region
CPT/HCPCS: 72072; 72100

== ENCOUNTER 2021-11-23 14:00 | Outpatient (RCR) | payer MEDICARE | END 2021-11-27 | LOC: CARD 14:00 | PROVIDERS: ATTEND Family Medicine | DX: R00.2 Palpitations (principal) ==

== ENCOUNTER → 2022-01-24 | Outpatient (CLI) | payer MEDICARE | LOC: CARD 09:30 | PROVIDERS: ATTEND Internal Medicine Cardiovascular Disease | DX: R00.2 Palpitations (principal) | CPT/HCPCS: 93306 ==

== ENCOUNTER → 2022-05-22 | Outpatient (CLI) | payer MEDICARE ==
--- NOTE | 2022-05-22 09:57 | Diagnostic Imaging Report ---
PROCEDURE: MRI right joint lower extremity without contrast. TECHNIQUE: Multiplanar, multisequence non contrast-enhanced MRI of the right lower extremity was accomplished. INDICATION: Pain in the right foot arch and laterally. COMPARISON: None FINDINGS: No acute fracture is seen in the right foot. Alignment appears normal. There are moderate degenerative changes in the midfoot. There is no joint effusion. The anterior and posterior syndesmotic ligaments are intact. The anterior and posterior talofibular ligaments are intact. The calcaneofibular ligament demonstrates mild surrounding edema, but otherwise appears intact. There is a partial tear of the deep fibers of the deltoid ligament, which appears to be chronic. The spring ligament appears intact. The plantar fascia is not thickened. The sinus tarsi demonstrates normal fat signal. The Achilles tendon is intact. There is increased fluid in the peroneal tendon sheath. There is a longitudinal split tear of the retromalleolar and inframalleolar peroneus brevis tendon. There is tendinosis of the peroneus longus tendon and increased fluid and edema about the distal peroneus longus tendon. The flexor tendons appear intact. The extensor tendons are intact. No muscular atrophy is seen about the ankle. No soft tissue fluid collections or masses are seen. IMPRESSION: 1. Peroneal tenosynovitis with longitudinal split tear of the peroneus brevis tendon and tendinosis with surrounding fluid and edema of the distal peroneus longus tendon. 2. Grade 1 sprain of the calcaneofibular ligament. 3. Partial tear of the deep fibers of the deltoid ligament appears chronic. 4. Degenerative changes in the midfoot. Dictated by: Dictated on workstation # [id number]
--- NOTE | 2022-05-22 09:58 | Diagnostic Imaging Report ---
PROCEDURE: MRI right lower extremity without contrast. TECHNIQUE: Multiplanar, multisequence non contrast-enhanced MRI of the right lower extremity was accomplished. INDICATION: Pain in the arch and the lateral right foot. COMPARISON: None FINDINGS: There are degenerative changes in the midfoot with edema and fluid plantar to the midfoot in the deep soft tissues. Please refer to separate MRI of the right ankle. Subcortical cystlike change and degenerative change noted at the 2nd, 3rd, and 4th metatarsal bases. There are degenerative changes in the 1st MTP joint. There is dorsiflexion of the MTP joints. There is hardware at the 1st metatarsal head. There is generalized muscular atrophy with mild edema. No soft tissue masses or fluid collections are seen. IMPRESSION: 1. Degenerative changes in the midfoot and 1st MTP joint. 2. Muscular atrophy and edema, may be neurogenic. 3. Additional findings, particularly of the peroneus longus tendon and surrounding soft tissues, please refer to separate MRI of the ankle. Dictated by: Dictated on workstation # [id number]
== END ==
LOC: RAD 08:00
PROVIDERS: ATTEND Family Medicine
DX: S93.411A Sprain of calcaneofibular ligament of right ankle, initial encounter (principal); S93.421A Sprain of deltoid ligament of right ankle, initial encounter; M19.071 Primary osteoarthritis, right ankle and foot; M62.571 Muscle wasting and atrophy, not elsewhere classified, right ankle and foot; M65.871 Other synovitis and tenosynovitis, right ankle and foot; X58.XXXA Exposure to other specified factors, initial encounter
CPT/HCPCS: 73721

== ENCOUNTER 2022-06-28 08:24 | Outpatient (RCR) | payer MEDICARE | END 2022-06-29 | disposition home or self-care (01) | PROVIDERS: ATTEND Orthopaedic Surgery | DX: M72.2 Plantar fascial fibromatosis (principal) ==

== ENCOUNTER 2022-07-19 10:30 | Outpatient (RCR) | payer MEDICARE | END 2022-07-30 | disposition home or self-care (01) | PROVIDERS: ATTEND Orthopaedic Surgery | DX: M62.89 Other specified disorders of muscle (principal) ==

== ENCOUNTER 2022-08-07 09:47 | Outpatient (RCR) | payer MEDICARE | END 2022-08-29 | disposition home or self-care (01) | PROVIDERS: ATTEND Orthopaedic Surgery | DX: M79.671 Pain in right foot (principal); M62.89 Other specified disorders of muscle ==

== ENCOUNTER 2022-12-07 14:43 | Outpatient (RCR) | payer MEDICARE | END 2022-12-28 | disposition home or self-care (01) | PROVIDERS: ATTEND Family Medicine | DX: M79.671 Pain in right foot (principal); M79.672 Pain in left foot; R20.0 Anesthesia of skin; R26.89 Other abnormalities of gait and mobility ==

== ENCOUNTER → 2023-08-07 | Outpatient (CLI) | payer MEDICARE ==
--- NOTE | 2023-08-07 11:49 | Diagnostic Imaging Report ---
PROCEDURE: MR imaging of the brain without contrast. TECHNIQUE: Multiplanar, multisequence MR imaging of the brain was performed without contrast. INDICATION: Paresthesias. Loss of balance. Dysarthria. COMPARISON: MRI brain of 01/08/2017. FINDINGS: Examination is limited by motion. Mild generalized volume loss. Mild nonspecific T2 hyperintensities in the supratentorial and pontine white matter. No restricted water diffusion. No hemosiderin deposition or evidence of intracranial hemorrhage. Normal morphology including the major midline structures, sella, posterior fossa and cerebellopontine angle. Normal intracranial flow voids. No hydrocephalus or extra-axial fluid collections. The orbits are negative. Paranasal sinuses and mastoids are clear. Normal bone marrow signal. IMPRESSION: Age-appropriate MRI of the brain without contrast allowing for motion artifact. No acute findings. No evidence of acute infarction or hemorrhage. Dictated by: Dictated on workstation # [id number]
== END ==
LOC: RAD 10:30
PROVIDERS: ATTEND Physician Assistant
DX: R20.2 Paresthesia of skin (principal); R26.89 Other abnormalities of gait and mobility; G24.9 Dystonia, unspecified; M79.10 Myalgia, unspecified site
CPT/HCPCS: 70551

== ENCOUNTER → 2023-08-08 | Outpatient (CLI) | payer MEDICARE ==
--- NOTE | 2023-08-08 12:07 | Diagnostic Imaging Report ---
EXAM: MRI THORACIC SPINE W/O CON INDICATION: Back pain. Numbness and tingling in extremities. COMPARISON: Thoracic spine radiographs 08/09/2021. FINDINGS: Normal alignment. Chronic vertebral body height loss of T6 of approximately 30% without edema or significant retropulsion. Mild diffuse degenerative endplate changes. No spinal canal stenosis. No abnormal signal in the thoracic spinal cord. The visualized paravertebral soft tissues are unremarkable. IMPRESSION: 1. Mild spondylotic changes result in no high-grade spinal canal stenosis. 2. No abnormal signal in the thoracic spinal cord. 3. Chronic height loss of T6. No acute osseous findings. Dictated by: Dictated on workstation # [id number]
--- NOTE | 2023-08-08 13:21 | Diagnostic Imaging Report ---
PROCEDURE: MR imaging cervical spine without contrast. TECHNIQUE: Multiplanar, multisequence MR imaging of the cervical spine was performed without contrast. INDICATION: Numbness and tingling to the extremities. COMPARISON: I have no priors. FINDINGS: The cervical spinal cord has a normal volume morphology and signal intensity. The cervical vertebral statures, alignment and marrow signal intensity unremarkable aside from trace 1 to 2 mm anterolisthesis of C7 on T1. Facet relationships anatomic and normal aside from degenerative disease. Cervical spinal canal widely patent throughout. There is mid to lower spondylosis. At C3-C4, osteophyte disc material effaces the ventral thecal sac and results in a moderate to severe degree of left foraminal stenosis. The right foramen is moderately narrowed. There is only mild canal stenosis. At C4-C5, osteophyte disc material results in mild canal stenosis. There is severe left and mild right neural foraminal stenosis. At C5-C6, endplate spurs and osteophytes result in no significant canal stenosis. There is moderate left and [id number] right foraminal narrowing. C6-C7: Uncovertebral joint spurring, disc bulge and endplate osteophytes result in no significant canal stenosis. There is mild to moderate biforaminal narrowing. C7-T1: Trace grade 1 degenerative listhesis present with no significant canal or foraminal narrowing. IMPRESSION: Red-cervical degenerative changes with multilevel mid to lower left greater than right substantial degrees of foraminal stenoses. Normal cord. No acute bony abnormality. Dictated by: Dictated on workstation # [id number]
--- NOTE | 2023-08-08 13:58 | Diagnostic Imaging Report ---
PROCEDURE: MRI lumbar spine. TECHNIQUE: Multiplanar, multisequence MRI of the lumbar spine was performed without contrast. INDICATION: Extremity numbness, weakness, spinal stenoses. Degenerative disease. COMPARISON: No priors. FINDINGS: There are predominantly edematous Modic type I changes across the L3-L4 opposing endplates asymmetric to the right. No acute lumbar pathology. The vertebral statures are normal, the alignment is normal, the pedicles and pars were intact. The conus normal. No acute or suspicious intrathecal or epidural abnormality. T12-L1: This level and disc unremarkable. No stenosis. L1-L2: There is disc desiccation, stature loss and mild osteophyte disc material, anterior greater than posterior, without resultant stenosis. L2-L3: Disc desiccation, stature loss, bulge and mild endplate osteophytes at this level result in a borderline degree of mild biforaminal narrowing but no compression of the exiting nerve roots and no significant canal narrowing. L3-L4: Disc desiccation, stature loss, endplate osteophytes and bulging asymmetric to the right result in moderate right foraminal narrowing. The left is very mildly stenosed. The canal patent. No substantial recess narrowing. L4-L5: There is facet arthrosis and slight thickening of the ligamenta flava. Disc desiccation, bulge and endplate osteophytes. There is mild left greater than right foraminal narrowing. No significant canal stenosis. L5-S1: There is degenerative facet disease, greater left. Endplate osteophytes and disc material result in mild to moderate left and mild right neural foraminal stenosis. No significant canal narrowing. IMPRESSION: 1. Degenerative changes to discs, endplates and facets resulting in multilevel predominantly mild stenoses of neural foramina greater than spinal canal detailed level by level above. Degenerative Modic endplate edema at L3-L4 but no acute-appearing osseous pathology, fracture or malalignment Dictated by: Dictated on workstation # [id number]
== END ==
LOC: RAD 09:12
PROVIDERS: ATTEND Physician Assistant
DX: M48.061 Spinal stenosis, lumbar region without neurogenic claudication (principal); M47.813 Spondylosis without myelopathy or radiculopathy, cervicothoracic region
CPT/HCPCS: 72141; 72146; 72148

== ENCOUNTER → 2023-08-29 | Outpatient (RCR) | payer MEDICARE | END | disposition home or self-care (01) | PROVIDERS: ATTEND Physician Assistant | DX: M54.16 Radiculopathy, lumbar region (principal); M54.12 Radiculopathy, cervical region; M48.061 Spinal stenosis, lumbar region without neurogenic claudication ==